=== PATIENT | female | born 1945 | race Caucasian/White ===

== ENCOUNTER 2018-02-09 19:01 | Inpatient (IN) | payer MEDICARE ==
[~2018-02-09] VITALS: Ht 152.4 cm; Wt 77.6 kg
[2018-02-09 19:05] VITALS: BP 134/77; PULSE 83; RESP 15; TEMP 99.1; O2SAT 94
--- NOTE | 2018-02-09 20:24 | PD ---
HPI Chief Complaint: Psychiatric Symptoms Time Seen by Provider: 20:23 Travel History International Travel<30 days: No Contact w/Intl Traveler<30days: No Traveled to known affect area: No History of Present Illness HPI 72-year-old female with history of bipolar disorder presents emergency department voluntarily for psychiatric evaluation. Patient states that she takes lithium daily. She has been taking this for 40 years. She tells me that intermittently she does hear voices over the years, however they become more frequent as of late. She states that they are telling her to throw rocks at babies. She tells me that she is concerned that she may hurt somebody so she came to the emergency department. Denies any illicit drug use. Denies any recent injuries, fever, or chills. She denies any other symptoms at this time. PFSH Past Medical History Bipolar Disorder: Yes Cardiovascular Problems: Yes ("palpitations") Hypertension: Yes Medical other: Yes ("psychosis...50 years ago") Thyroid Disease: Yes Tetanus Vaccination: < 5 Years Social History Tobacco Use: No Substance Use: No Allergies-Medications (Allergen,Severity, Reaction): Coded Allergies: No Known Allergies (Unverified , 02/09/18) Reported Meds & Prescriptions Reported Meds & Active Scripts Active Reported Atorvastatin (Atorvastatin Calcium) 40 Mg Tab 40 Mg PO HS Propranolol (Propranolol HCl) 20 Mg Tab 20 Mg PO Q12HR [place] ([place] Citrate) 8 Meq/5 Ml (5 Ml) Solution 450 Mg PO DAILY Clopidogrel (Clopidogrel Bisulfate) 75 Mg Tab 75 Mg PO DAILY Review of Systems Except as stated in HPI: all other systems reviewed are Neg Physical Exam Narrative GENERAL: Well-nourished elderly female patient, no acute distress. SKIN: Focused skin assessment warm/dry. HEAD: Atraumatic. Normocephalic. EYES: Pupils equal and round. No scleral icterus. No injection or drainage. ENT: No nasal bleeding or discharge. Mucous membranes pink and moist. NECK: Trachea midline. No JVD. CARDIOVASCULAR: Regular rate and rhythm. No murmur appreciated. RESPIRATORY: No accessory muscle use. Clear to auscultation. Breath sounds equal bilaterally. GASTROINTESTINAL: Abdomen soft, non-tender, nondistended. Hepatic and splenic margins not palpable. MUSCULOSKELETAL: No obvious deformities. No clubbing. No cyanosis. No edema. NEUROLOGICAL: Awake and alert. No obvious cranial nerve deficits. Motor grossly within normal limits. Normal speech. Data Data Last Documented VS Vital Signs Date Time Temp Pulse Resp B/P (MAP) Pulse Ox O2 Delivery O2 Flow Rate FiO2 02/10/18 01:23 70 20 142/78 (99) 97 Room Air 02/09/18 19:05 99.1 Orders Orders Complete Blood Count With Diff (02/09/18 20:23) Comprehensive Metabolic Panel (02/09/18 20:23) Thyroid Stimulating Hormone (02/09/18 20:23) Urinalysis - C+S If Indicated (02/09/18 20:23) Oximetry (02/09/18 20:23) Iv Access Insert/Monitor (02/09/18 20:23) Ecg Monitoring (02/09/18 20:23) Cath For Specimen (02/09/18 20:23) Psych Screen (02/09/18 20:23) Drug Screen, Random Urine (02/09/18 20:23) Alcohol (Ethanol) (02/09/18 20:23) [place] (Li) (02/09/18 20:47) Lorazepam (Ativan) (02/10/18 00:45) Labs Laboratory Tests Test 02/09/18 20:45 02/09/18 22:05 White Blood Count 7.8 TH/MM3 Red Blood Count 4.59 MIL/MM3 Hemoglobin 14.4 GM/DL Hematocrit 43.5 % Mean Corpuscular Volume 94.8 FL Mean Corpuscular Hemoglobin 31.5 PG Mean Corpuscular Hemoglobin Concent 33.2 % Red Cell Distribution Width 13.6 % Platelet Count 311 TH/MM3 Mean Platelet Volume 7.0 FL Neutrophils (%) (Auto) 68.3 % Lymphocytes (%) (Auto) 21.1 % Monocytes (%) (Auto) 8.7 % Eosinophils (%) (Auto) 1.1 % Basophils (%) (Auto) 0.8 % Neutrophils # (Auto) 5.3 TH/MM3 Lymphocytes # (Auto) 1.6 TH/MM3 Monocytes # (Auto) 0.7 TH/MM3 Eosinophils # (Auto) 0.1 TH/MM3 Basophils # (Auto) 0.1 TH/MM3 CBC Comment DIFF FINAL Differential Comment Blood Urea Nitrogen 15 MG/DL Creatinine 0.95 MG/DL Random Glucose 105 MG/DL Total Protein 7.6 GM/DL Albumin 4.0 GM/DL Calcium Level 9.6 MG/DL Alkaline Phosphatase 82 U/L Aspartate Amino Transf (AST/SGOT) 20 U/L Alanine Aminotransferase (ALT/SGPT) 26 U/L Total Bilirubin 0.8 MG/DL Sodium Level 141 MEQ/L Potassium Level 3.8 MEQ/L Chloride Level 109 MEQ/L Carbon Dioxide Level 24.6 MEQ/L Anion Gap 7 MEQ/L Estimat Glomerular Filtration Rate 58 ML/MIN Thyroid Stimulating Hormone 3rd Gen 1.430 uIU/ML [place] Level 0.7 MEQ/L Ethyl Alcohol Level LESS THAN 3 MG/DL Urine Color YELLOW Urine Turbidity CLEAR Urine pH 7.0 Urine Specific [place] 1.014 Urine Protein NEG mg/dL Urine Glucose (UA) NEG mg/dL Urine Ketones TRACE mg/dL Urine Occult Blood TRACE Urine Nitrite NEG Urine Bilirubin NEG Urine Urobilinogen LESS THAN 2.0 MG/DL Urine Leukocyte Esterase NEG Urine RBC 15 /hpf Urine WBC 2 /hpf Urine Squamous Epithelial Cells <1 /hpf Urine Hyaline Casts 2 /lpf Urine Mucus FEW /lpf Microscopic Urinalysis Comment CATH-CULT NOT IND Urine Opiates Screen NEG Urine Barbiturates Screen NEG Urine Amphetamines Screen NEG Urine Benzodiazepines Screen NEG Urine Cocaine Screen NEG Urine Cannabinoids Screen NEG MDM Medical Decision Making Medical Screen Exam Complete: Yes Emergency Medical Condition: Yes Medical Record Reviewed: Yes Differential Diagnosis Mood disorder versus personality disorder versus lithium toxicity versus subtherapeutic lithium Narrative Course 72-year-old female presents emergency department voluntarily for psychiatric evaluation. Patient has long-standing history of bipolar disorder. She does take lithium for this. Patient is concerned that she might hurt somebody else that the voices in her head are telling her to throw rocks the babies. Laboratory Tests Test 02/09/18 20:45 02/09/18 22:05 White Blood Count 7.8 TH/MM3 Red Blood Count 4.59 MIL/MM3 Hemoglobin 14.4 GM/DL Hematocrit 43.5 % Mean Corpuscular Volume 94.8 FL Mean Corpuscular Hemoglobin 31.5 PG Mean Corpuscular Hemoglobin Concent 33.2 % Red Cell Distribution Width 13.6 % Platelet Count 311 TH/MM3 Mean Platelet Volume 7.0 FL Neutrophils (%) (Auto) 68.3 % Lymphocytes (%) (Auto) 21.1 % Monocytes (%) (Auto) 8.7 % Eosinophils (%) (Auto) 1.1 % Basophils (%) (Auto) 0.8 % Neutrophils # (Auto) 5.3 TH/MM3 Lymphocytes # (Auto) 1.6 TH/MM3 Monocytes # (Auto) 0.7 TH/MM3 Eosinophils # (Auto) 0.1 TH/MM3 Basophils # (Auto) 0.1 TH/MM3 CBC Comment DIFF FINAL Differential Comment Blood Urea Nitrogen 15 MG/DL Creatinine 0.95 MG/DL Random Glucose 105 MG/DL Total Protein 7.6 GM/DL Albumin 4.0 GM/DL Calcium Level 9.6 MG/DL Alkaline Phosphatase 82 U/L Aspartate Amino Transf (AST/SGOT) 20 U/L Alanine Aminotransferase (ALT/SGPT) 26 U/L Total Bilirubin 0.8 MG/DL Sodium Level 141 MEQ/L Potassium Level 3.8 MEQ/L Chloride Level 109 MEQ/L Carbon Dioxide Level 24.6 MEQ/L Anion Gap 7 MEQ/L Estimat Glomerular Filtration Rate 58 ML/MIN Thyroid Stimulating Hormone 3rd Gen 1.430 uIU/ML [place] Level 0.7 MEQ/L Ethyl Alcohol Level LESS THAN 3 MG/DL Urine Color YELLOW Urine Turbidity CLEAR Urine pH 7.0 Urine Specific [place] 1.014 Urine Protein NEG mg/dL Urine Glucose (UA) NEG mg/dL Urine Ketones TRACE mg/dL Urine Occult Blood TRACE Urine Nitrite NEG Urine Bilirubin NEG Urine Urobilinogen LESS THAN 2.0 MG/DL Urine Leukocyte Esterase NEG Urine RBC 15 /hpf Urine WBC 2 /hpf Urine Squamous Epithelial Cells <1 /hpf Urine Hyaline Casts 2 /lpf Urine Mucus FEW /lpf Microscopic Urinalysis Comment CATH-CULT NOT IND Urine Opiates Screen NEG Urine Barbiturates Screen NEG Urine Amphetamines Screen NEG Urine Benzodiazepines Screen NEG Urine Cocaine Screen NEG Urine Cannabinoids Screen NEG Lab work is without acute concern. Patient is medically cleared to undergo psychiatric screening for further evaluation and disposition. Mental health screening discussed with the patient. Psychiatric screen ordered. Diagnosis Primary Impression: Bipolar disorder Qualified Codes: F31.9 - Bipolar disorder, unspecified Additional Impression: Auditory hallucination Condition: Stable Gissell Stewart ELADIO Feb 09, 2018 20:24
[2018-02-09] MEDS ORDERED: LITH8SOL2 PO (20:57)
[2018-02-09] MEDS ORDERED: PROP20TA3 PO (20:57)
[2018-02-09] MEDS ORDERED: ATOR40TA16 PO (20:57)
[2018-02-09] MEDS ORDERED: CLOP75TA PO (20:57)
[2018-02-09 20:58] VITALS: O2SAT 100
[2018-02-09 21:03] LABS: AUTOMATED NEUTROPHIL # 5.3 TH/MM3 (1.8-7.7); BASOPHIL # 0.1 TH/MM3 (0-0.2); BASOPHIL % 0.8 % (0.0-2.0); EOSINOPHIL # 0.1 TH/MM3 (0-0.4); EOSINOPHIL % 1.1 % (0.0-4.0); HEMATOCRIT 43.5 % (35.0-46.0); HEMOGLOBIN 14.4 GM/DL (11.6-15.3); LYMPH % 21.1 % (9.0-44.0); LYMPHOCYTE # 1.6 TH/MM3 (1.0-4.8); MEAN CELL VOLUME 94.8 FL (80.0-100.0); MEAN CORPUSCULAR HEMOGLOBIN 31.5 PG (27.0-34.0); MEAN CORPUSCULAR HGB CONC 33.2 % (32.0-36.0); MONO % 8.7 % (0.0-8.0); MONOCYTE # 0.7 TH/MM3 (0-0.9); NEUT % 68.3 % (16.0-70.0); PLATELET COUNT 311 TH/MM3 (150-450); RED BLOOD COUNT 4.59 MIL/MM3 (4.00-5.30); RED CELL DISTRIBUTION WIDTH 13.6 % (11.6-17.2); WHITE BLOOD COUNT 7.8 TH/MM3 (4.0-11.0)
[2018-02-09 21:18] LABS: AST (GOT) 20 U/L (15-37); BICARBONATE 24.6 MEQ/L (21.0-32.0); BLOOD UREA NITROGEN 15 MG/DL (7-18); CALCIUM 9.6 MG/DL (8.5-10.1); CHLORIDE 109 MEQ/L (98-107); CREATININE 0.95 MG/DL (0.50-1.00); GLOMERULAR FILTRATION RATE 58 ML/MIN (>89); GLUCOSE,RANDOM 105 MG/DL (74-106); SODIUM (NA) 141 MEQ/L (136-145)
[2018-02-09 21:20] LABS: ALT (GPT) 26 U/L (10-53)
[2018-02-09 21:29] LABS: ALKALINE PHOSPHATASE 82 U/L (45-117); TOTAL BILIRUBIN ADULT 0.8 MG/DL (0.2-1.0); TOTAL PROTEIN 7.6 GM/DL (6.4-8.2)
[2018-02-09 22:24] LABS: BILIRUBIN, URINE NEG (NEG); BLOOD, URINE TRACE (NEG); GLUCOSE,URINE NEG (NEG); HYALINE CAST, URINE 2 /lpf (RARE); KETONE, URINE TRACE mg/dL (NEG); MUCUS URINE FEW /lpf (OCC); NITRITE,URINE NEG (NEG); SQUAMOUS EPITHELIAL CELL URINE <1 /hpf (0-5); URINE COLOR YELLOW (YELLW/STRAW); URINE LEUKOCYTE ESTERASE NEG (NEG)
[2018-02-10] MEDS ORDERED: LORazepam 1 MG TAB PO ONE ×2 (00:45→07:15)
[2018-02-10 01:23] VITALS: BP 142/78; PULSE 70; RESP 20; O2SAT 97
[2018-02-10 07:15] VITALS: BP 154/65; PULSE 72; RESP 19; TEMP 98.8; O2SAT 98
[2018-02-10] MEDS ORDERED: LITHIUM ORAL SOLUTION 300 MG/5 ML CUP PO ONE (07:15)
[2018-02-10] MEDS ORDERED: ALUMINUM/MAGNESIUM/SIMETH 30 ML CUP PO PRN (15:30)
[2018-02-10] MEDS ORDERED: MAGNESIUM HYDROXIDE SUSP 30 ML CUP PO PRN (15:30)
[2018-02-10] MEDS ORDERED: NICOTINE 21 MG/24 HR PATCH T-DERMAL PRN (15:30)
[2018-02-10] MEDS ORDERED: diphenhydrAMINE HCL 50 MG CAP PO PRN (15:30)
[2018-02-10] MEDS ORDERED: diphenhydrAMINE HCL 25 MG CAP PO PRN (15:45)
[2018-02-10 18:15] VITALS: BP 156/75; PULSE 87; RESP 19; TEMP 98.7; O2SAT 95
[2018-02-10 21:20] VITALS: BP 146/69; PULSE 101; RESP 20; TEMP 97.8; O2SAT 98
[2018-02-10] MEDS: PROPRANOLOL HCL 20 MG TAB PO SCH (21:42)
[2018-02-10] MEDS: ATORVASTATIN 40 MG TAB PO SCH (21:42)
--- NOTE | 2018-02-10 23:53 | EKG ---
Date Performed: 02/10/2018 Time Performed: 16:41:33 PTAGE: 72 years EKG: Sinus rhythm NONSPECIFIC ST & T-WAVE ABNORMALITY ABNORMAL ECG PREVIOUS TRACING : 04/30/2001 23.45 Since the previous tracing, no significant change noted DOCTOR: Jermain Munoz Interpretating Date/Time 02/10/2018 23:52:27
[2018-02-11 06:16] VITALS: BP 138/82; PULSE 62; RESP 17; TEMP 97.4; O2SAT 97
[2018-02-11] MEDS: REMOVE OLD NICODERM (NICOTINE) PATCH T-DERMAL SCH (07:53)
[2018-02-11 08:59] LABS: BLOOD UREA NITROGEN 22 MG/DL (7-18); CALCIUM 9.6 MG/DL (8.5-10.1); CHLORIDE 110 MEQ/L (98-107); CREATININE 0.83 MG/DL (0.50-1.00); GLOMERULAR FILTRATION RATE 67 ML/MIN (>89); GLUCOSE,RANDOM 95 MG/DL (74-106); SODIUM (NA) 142 MEQ/L (136-145)
[2018-02-11 09:00] LABS: CHOLESTEROL 155 MG/DL (120-200); TRIGLYCERIDES 61 MG/DL (42-150)
[2018-02-11] MEDS: PROPRANOLOL HCL 20 MG TAB PO SCH ×2 (09:00→20:27)
[2018-02-11] MEDS: CLOPIDOGREL 75 MG TAB PO SCH (09:00)
[2018-02-11 09:04] LABS: CHOLESTEROL/ HDL RATIO 1.78 RATIO; HDL CHOLESTEROL 86.8 MG/DL (40.0-60.0); LDL CHOLESTEROL 56 MG/DL (0-99)
--- NOTE | 2018-02-11 14:37 | HHI.HP ---
Provisional Diagnosis Admission Date Feb 10, 2018 at 15:27 [place] I. 1. Unspecified psychosis Rule out bipolar disorder with psychotic features 2. History of bipolar illness [place] II. Deferred Certification of Person's Competence To Provide Express and Informed Consent I have personally examined Cristina Perez , a person being served at [facility] on, Feb 11, 2018 14:37. Express and informed consent means consent voluntarily given in writing, by a competent person, after sufficient explanation and disclosure of the subject matter involved to enable the person to make a knowing and willful decision without any element of force, fraud, deceit, duress, or other form of constraint or coercion. This person is 18 years of age or older, is not now known to be incompetent to consent to treatment with a guardian advocate, and does not have a health care surrogate or proxy currently making medical treatment decisions. I have found this person to be one of the following: [x] Competent to provide express and informed consent, as defined above, for voluntary admission to this facility and is competent to provide express and informed consent for treatment. He/she has the consistent capacity to make well reasoned, willful, and knowing decisions concerning his or her medical or mental health treatment. The person fully and consistently understands the purpose of the admission for examination/placement and is fully capable of personally exercising all rights assured [place] Incompetent to provide express and informed consent to voluntary admission, and this is incompetent to provide express and informed consent to treatment. The person must be transferred to involuntary status and a petition for a guardian advocate filed with the Circuit Court. [] Refusing to provide express and informed consent to voluntary admission but is competent to provide express and informed consent for treatment. The person must be discharged or transferred to involuntary status. Form shall be completed within 24 hours of a person's arrival at the receiving facility and filed in the clinical record of each person: 1. Admitted on a voluntary basis 2. Permitted to provide express and informed consent to his/her own treatment 3. Allowed to transfer from involuntary to voluntary status 4. Prior to permitting a person to consent to his or her own treatment after having been previously found incompetent to consent to treatment. History of Present Illness Capacity: Has Capacity Psych Chief Complaint: Hallucinations HPI Ms. Perez is a 72-year-old female with a reported history of bipolar disorder who presented to the emergency department voluntarily complaining of auditory hallucinations. Reviewing the electronic medical record, I note this is patient 's first visit to [place]. Patient seen and examined. Chart reviewed. Case discussed with nursing staff who reports patient has been quite paranoid and reportedly articulated a belief that nurse was trying to kill her. She is also paranoid regarding medications per nursing staff. On my examination today, the patient reports that she has experienced "noises in my head over the years. Voices in my head. Birds tinkling." She reports that she also occasionally hears a persons voice telling her, for example, to throw a rock at someone else. She denies that the voices are worse/different than usual. She also reports on occasion that she feels like people are watching her and following her. She reports that both the paranoia and hallucinations have occurred before, and these have always responded to nothing more than lithium therapy. I can elicit no ideas of reference, no thought insertion or withdrawal or other delusional material. She denies any other hallucinatory material. Mood is reportedly stable and I can elicit no depressive or hypomanic/manic symptoms. No reported sleep or appetite disturbance. She denies any suicidal or homicidal ideation, intent or plan. The remainder of the psychiatric ROS is negative. The patient has no acute physical complaints. Past psychiatric history: The patient reports that she has a history of bipolar disorder. She follows with a female mental health provider whose name she cannot recall. She reports that she is chronically on lithium, she thinks a dose of 425 mg twice daily, although she does note that she stops it "on and off." She reports that she was hospitalized at [facility] in the past although she cannot recall exactly when. She denies a history of suicide attempts. Denies a history of violent behavior. Family history: Patient reports that her brother had paranoid schizophrenia. No reported family history of suicide. Chemical dependency history: The patient reports that she occasionally drinks wine. Denies any other substance use. Social history: Patient reports that she was in 2013. She has a son. 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 She denies any or legal history. Denies any access to guns or firearms. Denies any history of trauma. She is a Anab[employer]ism. Review of Systems Except as stated in HPI: all other systems reviewed are Neg Past Family Social History Coded Allergies: No Known Allergies (Unverified , 02/09/18) Past Medical History Includes a history of hypertension, hyperlipidemia, overactive bladder and knee surgery in the past. Reported Medications Atorvastatin (Atorvastatin) 40 Mg Tab, 40 MG PO HS for Cholesterol Management, # 30 TAB 0 Refills 02/09/18 Propranolol (Propranolol) 20 Mg Tab, 20 MG PO Q12HR, #60 TAB 0 Refills 02/09/18 [place] Citrate ([place]) 8 Meq/5 Ml (5 Ml) Solution, 450 MG PO DAILY 02/09/18 Clopidogrel (Clopidogrel) 75 Mg Tab, 75 MG PO DAILY for Blood Clot Prevention, # 30 TAB 0 Refills 02/09/18 Current Medications Medications (Trade) Dose Ordered Sig/Padmini Route Start Time Stop Time Status Last Admin (Lipitor) 40 mg HS PO 02/10/18 21:00 02/10/18 21:42 (Plavix) 75 mg DAILY PO 02/11/18 09:00 02/11/18 09:00 (Inderal) 20 mg Q12HR PO 02/10/18 21:00 02/11/18 09:00 (Tylenol) 650 mg Q4H PRN PO 02/10/18 15:30 (Milk Of Magnesia Liq) 30 ml DAILY PRN PO 02/10/18 15:30 (Mag-Al Plus Susp Liq) 30 ml Q6H PRN PO 02/10/18 15:30 (Habitrol 21 Mg Patch.24 Hr) 1 patch DAILY PRN T-DERMAL 02/10/18 15:30 (Benadryl) 25 mg HS PRN PO 02/10/18 15:45 Miscellaneous Information 1 DAILY T-DERMAL 02/11/18 09:00 Patient's Strengths (min. 2) In a monitored setting. Verbally fluent. Physical Exam Physical examination completed by ED provider. On my examination today, the patient appears to be in no acute physical distress. No motor abnormalities noted. Labs and vitals reviewed: Vital Signs Vital Signs Date Time Temp Pulse Resp B/P (MAP) Pulse Ox O2 Delivery O2 Flow Rate FiO2 02/11/18 06:16 97.4 62 17 138/82 (100) 97 02/10/18 18:15 Room Air Lab Results Laboratory Tests Test 02/09/18 20:45 02/09/18 22:05 02/11/18 07:35 White Blood Count 7.8 TH/MM3 Red Blood Count 4.59 MIL/MM3 Hemoglobin 14.4 GM/DL Hematocrit 43.5 % Mean Corpuscular Volume 94.8 FL Mean Corpuscular Hemoglobin 31.5 PG Mean Corpuscular Hemoglobin Concent 33.2 % Red Cell Distribution Width 13.6 % Platelet Count 311 TH/MM3 Mean Platelet Volume 7.0 FL Neutrophils (%) (Auto) 68.3 % Lymphocytes (%) (Auto) 21.1 % Monocytes (%) (Auto) 8.7 % Eosinophils (%) (Auto) 1.1 % Basophils (%) (Auto) 0.8 % Neutrophils # (Auto) 5.3 TH/MM3 Lymphocytes # (Auto) 1.6 TH/MM3 Monocytes # (Auto) 0.7 TH/MM3 Eosinophils # (Auto) 0.1 TH/MM3 Basophils # (Auto) 0.1 TH/MM3 CBC Comment DIFF FINAL Differential Comment Blood Urea Nitrogen 15 MG/DL 22 MG/DL Creatinine 0.95 MG/DL 0.83 MG/DL Random Glucose 105 MG/DL 95 MG/DL Total Protein 7.6 GM/DL Albumin 4.0 GM/DL Calcium Level 9.6 MG/DL 9.6 MG/DL Alkaline Phosphatase 82 U/L Aspartate Amino Transf (AST/SGOT) 20 U/L Alanine Aminotransferase (ALT/SGPT) 26 U/L Total Bilirubin 0.8 MG/DL Sodium Level 141 MEQ/L 142 MEQ/L Potassium Level 3.8 MEQ/L 4.0 MEQ/L Chloride Level 109 MEQ/L 110 MEQ/L Carbon Dioxide Level 24.6 MEQ/L 23.0 MEQ/L Thyroid Stimulating Hormone 3rd Gen 1.430 uIU/ML [place] Level 0.7 MEQ/L Ethyl Alcohol Level LESS THAN 3 MG/DL Urine Color YELLOW Urine Turbidity CLEAR Urine pH 7.0 Urine Specific [place] 1.014 Urine Protein NEG mg/dL Urine Glucose (UA) NEG mg/dL Urine Ketones TRACE mg/dL Urine Occult Blood TRACE Urine Nitrite NEG Urine Bilirubin NEG Urine Urobilinogen LESS THAN 2.0 MG/DL Urine Leukocyte Esterase NEG Urine RBC 15 /hpf Urine WBC 2 /hpf Urine Squamous Epithelial Cells <1 /hpf Urine Hyaline Casts 2 /lpf Urine Mucus FEW /lpf Microscopic Urinalysis Comment CATH-CULT NOT IND Urine Opiates Screen NEG Urine Barbiturates Screen NEG Urine Amphetamines Screen NEG Urine Benzodiazepines Screen NEG Urine Cocaine Screen NEG Urine Cannabinoids Screen NEG Anion Gap 9 MEQ/L Estimat Glomerular Filtration Rate 67 ML/MIN Triglycerides Level 61 MG/DL Cholesterol Level 155 MG/DL LDL Cholesterol 56 MG/DL HDL Cholesterol 86.8 MG/DL Cholesterol/HDL Ratio 1.78 RATIO Decreased GFR noted, improving. [place] level 0.7. Mental Status Examination Appearance: Appropriate Consciousness: Alert Orientation: x4 Motor Activity: Other (Ambulates with walker) Speech: Unremarkable Language: Adequate Fund of Knowledge: Adequate Attention and Concentration: Adequate Memory: Unremarkable Mood: Appropriate Affect: Appropriate Thought Process & Associations: Intact Thought Content: Hallucinations Hallucination Type: Auditory (Occasionally command as noted above) Delusion Type: Paranoid Suicidal Ideation: No Suicidal Plan: No Suicidal Intention: No Homicidal Ideation: No Homicidal Plan: No Homicidal Intention: No Mental Status Exam Remarks Insight and judgment are unclear Assessment & Plan Problem List: (1) Unspecified psychosis ICD Codes: F29 - Unspecified psychosis not due to a substance or known physiological condition (2) History of bipolar disorder ICD Codes: Z86.59 - Personal history of other mental and behavioral disorders Assessment & Plan 72-year-old female with psychiatric history as detailed above who presents on a voluntary basis complaining of hallucinations. On my examination today, the patient reports that she is experiencing auditory hallucinations, including some command auditory hallucinations. However, the patient seems to say that these hallucinations are not worse or different than baseline. She is also experiencing some subjective paranoia, and nursing staff has noted paranoia in their interactions. She reports occasional non-adherence with her lithium, although her level is fairly good, and so I am not sure how much this is a factor in the present instance. Patient is presently opposed to making any medication change besides continuing her lithium, although I have suggested that she allow us to add an antipsychotic medication for management of her presenting symptoms. I will plan to observe the patient on the inpatient unit for safety and in hopes of convincing her to allow us to add an antipsychotic. Admit inpatient. Voluntary status. Continue lithium 450 mg twice daily. Plan to check a level after appropriate interval. Patient declines any other psychotropic medications including p.r.n.s. I will continue patient's general medical medications. PT/OT eval. Vitals every shift. Counselor to see. Collateral information. Disposition planning. Estimated length of stay: 3-5 days. Discharge Planning Pending outcome of observation Request HC Surrog/Guard Advoc?: No (Not at this time) Luis Fernando Diaz MD Feb 11, 2018 14:37
[2018-02-11] MEDS: LITHIUM CARBONATE 450 MG CONTROLLED RELEASE TAB PO SCH (16:41)
[2018-02-11 17:07] LABS: HEMOGLOBIN A1C 5.2 % (4.3-6.0)
[2018-02-11 17:20] VITALS: BP 126/66; PULSE 65; RESP 18; TEMP 98.8; O2SAT 97
[2018-02-11] MEDS: ATORVASTATIN 40 MG TAB PO SCH (20:28)
--- NOTE | 2018-02-11 23:57 | EKG ---
Date Performed: 02/11/2018 Time Performed: 09:48:58 PTAGE: 72 years EKG: Sinus rhythm S1-S2-S3 PATTERN, CONSISTENT WITH PULMONARY DISEASE, RVH, OR NORMAL VARIANT MODERATE T-WAVE ABNORMAL ITY, CONSIDER ANTEROLATERAL ISCHEMIA ABNORMAL ECG PREVIOUS TRACING : 02/10/2018 16.41 Compared to previous tracing, ST/T wave changes anteriorly are more prominent DOCTOR: Jermain Munoz Interpretating Date/Time 02/11/2018 23:56:37
[2018-02-12 05:54] VITALS: BP 127/62; PULSE 59; RESP 16; TEMP 98
[2018-02-12] MEDS: LITHIUM CARBONATE 450 MG CONTROLLED RELEASE TAB PO SCH ×2 (08:24→18:00)
[2018-02-12] MEDS: PROPRANOLOL HCL 20 MG TAB PO SCH ×2 (08:25→20:30)
[2018-02-12] MEDS: CLOPIDOGREL 75 MG TAB PO SCH (08:25)
[2018-02-12] MEDS: ACETAMINOPHEN 325 MG TAB PO PRN (08:30)
[2018-02-12] MEDS: REMOVE OLD NICODERM (NICOTINE) PATCH T-DERMAL SCH (08:30)
--- NOTE | 2018-02-12 09:21 | PD.TTN ---
Patient Problems 1. Discharge planning 2. Medication compliance 3. Knowledge deficit 4. Lack of coping skills Progress Toward Goals Provider Present: Dr. Joshua Diaz Provider Input: 02/12/18 - Patient is on the same dose of [place] that she took at home. Possible discharge Sunday. Psychiatric Counselors Present: GABE Peter Psych Therapist Input: 02/12/18 - Counselor will obtain collateral information. Patient reported yesterday during her biopsychosocial assessment that she "is perfectly fine." Group Spec/RT/OT/BRYANT Present: Kaushal Trujillo OT Group Spec/RT/OT/BRYANT Input: 02/12/18 - Patient has not attended groups. Discharge Plan 02/12/18 - Patient will be discharged home when stable and will follow-up with her psychiatrist, . Documentation Scribe: GABE Peter Date Resolved: Feb 12, 2018 Naila Larios Feb 12, 2018 09:21
--- NOTE | 2018-02-12 12:43 | HHI.PYPN ---
Subjective Chief Complaint: Hallucinations Remarks Patient seen and examined with nurse and counselor. Chart reviewed. Case discussed with nursing staff. Patient noted to be oppositional and somewhat paranoid by nursing staff. Case discussed in treatment team. On my examination today, the patient initially denies all of her presenting psychiatric symptoms and requests discharge today. When I ask what has changed to cause such an abrupt improvement, the patient blurts out, "I'm lying about everything!" When I ask why, she replies "so I can go home." She reports that she continues to experience all of the symptoms she reported at admission, including AH. She remains paranoid. She refuses to consider antipsychotic and insists on discharge today. No side effects from medications. No physical complaints. Given that patient will require healthcare surrogate, see below, I did endeavor to reach out to her son at the number listed in the EMR and left a generic voicemail requesting a call back. Review of Systems ROS Limitations: Psychotic, Poor Historian Except as stated in HPI: all other systems reviewed are Neg Mental Status Examination Appearance: Appropriate Consciousness: Alert Orientation: x4 Motor Activity: Other (No motor abnormalities noted) Speech: Unremarkable Language: Adequate Fund of Knowledge: Adequate Attention and Concentration: Adequate Memory: Unremarkable Mood: Appropriate Affect: Appropriate Thought Process & Associations: Intact Thought Content: Hallucinations Hallucination Type: Auditory (Including command auditory hallucinations) Delusion Type: Paranoid Suicidal Ideation: No Suicidal Plan: No Suicidal Intention: No Homicidal Ideation: No Homicidal Plan: No Homicidal Intention: No Insight: Poor Judgment: Poor Results Labs Labs reviewed Vitals/IOs Vital Signs Date Time Temp Pulse Resp B/P (MAP) Pulse Ox O2 Delivery O2 Flow Rate FiO2 02/12/18 05:54 98.0 59 16 127/62 (83) 02/11/18 17:20 97 02/10/18 18:15 Room Air Assessment & Plan Problem List: (1) Unspecified psychosis ICD Codes: F29 - Unspecified psychosis not due to a substance or known physiological condition (2) History of bipolar disorder ICD Codes: Z86.59 - Personal history of other mental and behavioral disorders Assessment & Plan Patient is insisting on discharge and refusing to sign in voluntarily. She continues to exhibit psychiatric symptoms including command auditory hallucinations that place her at elevated risk for harm. I cannot support her discharge today for this reason. I will initiate a petition for involuntary psychiatric hospitalization and consult for second opinion. I am likewise concerned that she is unable to appreciate the extent of her illness and is unable to negotiate treatment in a reasonable fashion secondary to her psychiatric symptoms. I will request healthcare surrogate and guardian advocate. I do think that the patient would benefit from an antipsychotic, but this will need to await consent by HCS. Continue current treatment as ordered in the meantime. Justification for Cont. Inpt. Concern for impairment in safety. Impairment in reality construction. High risk for decompensation in less restrictive environment. Discharge Planning Pending psychiatric stabilization. Request HC Surrog/Guard Advoc?: Yes Luis Fernando Diaz MD Feb 12, 2018 12:43
--- NOTE | 2018-02-12 14:05 | PD.PSY.CON ---
Provisional Diagnosis Admission Date Feb 10, 2018 at 15:27 [place] I. 1. Unspecified psychosis Rule out bipolar disorder with psychotic features 2. History of bipolar illness [place] II. Deferred History of Present Illness Service Psychiatry Consult Requested By Psychiatry Reason for Consult Second opinion Primary Care Physician Unknown HPI Ms. Perez is a 72-year-old female with a reported history of bipolar disorder who presented to the emergency department voluntarily complaining of auditory hallucinations. Reviewing the electronic medical record, I note this is patient 's first visit to [facility]. Patient seen and examined. Chart reviewed. Case discussed with nursing staff who reports patient has been quite paranoid and reportedly articulated a belief that nurse was trying to kill her. She is also paranoid regarding medications per nursing staff. On my examination today, the patient reports that she has experienced "noises in my head over the years. Voices in my head. Birds tinkling." She reports that she also occasionally hears a persons voice telling her, for example, to throw a rock at someone else. She denies that the voices are worse/different than usual. She also reports on occasion that she feels like people are watching her and following her. She reports that both the paranoia and hallucinations have occurred before, and these have always responded to nothing more than lithium therapy. I can elicit no ideas of reference, no thought insertion or withdrawal or other delusional material. She d the patient is a 72-year-old enies any other hallucinatory material. Mood is reportedly stable and I can elicit no depressive or hypomanic/manic symptoms. No reported sleep or appetite disturbance. She denies any suicidal or homicidal ideation, intent or plan. The remainder of the psychiatric ROS is negative. The patient has no acute physical complaints. The patient is a 72-year-old woman, who is a , has a son, with psychiatric history of bipolar disorder, psychiatric hospitalizations, she has been on lithium for a long time, who was brought to the hospital with a complaint of visual hallucinations. Patient was consulted to me for second opinion. She reports doing better. She has been reportedly paranoid, but at the moment of my evaluation I cannot proceed this paranoia. Denies depression at the moment, denies suicidal and was ideation, denies visual and auditory hallucinations. Past Family Social History Coded Allergies: No Known Allergies (Unverified , 02/09/18) Reported Medications Atorvastatin (Atorvastatin) 40 Mg Tab, 40 MG PO HS for Cholesterol Management, # 30 TAB 0 Refills 02/09/18 Propranolol (Propranolol) 20 Mg Tab, 20 MG PO Q12HR, #60 TAB 0 Refills 02/09/18 [place] Citrate ([place]) 8 Meq/5 Ml (5 Ml) Solution, 450 MG PO DAILY 02/09/18 Clopidogrel (Clopidogrel) 75 Mg Tab, 75 MG PO DAILY for Blood Clot Prevention, # 30 TAB 0 Refills 02/09/18 Current Medications Medications (Trade) Dose Ordered Sig/Padmini Route Start Time Stop Time Status Last Admin (Lipitor) 40 mg HS PO 02/10/18 21:00 02/11/18 20:28 (Plavix) 75 mg DAILY PO 02/11/18 09:00 02/12/18 08:25 (Inderal) 20 mg Q12HR PO 02/10/18 21:00 02/12/18 08:25 (Tylenol) 650 mg Q4H PRN PO 02/10/18 15:30 02/12/18 08:30 (Milk Of Magnesia Liq) 30 ml DAILY PRN PO 02/10/18 15:30 (Mag-Al Plus Susp Liq) 30 ml Q6H PRN PO 02/10/18 15:30 (Habitrol 21 Mg Patch.24 Hr) 1 patch DAILY PRN T-DERMAL 02/10/18 15:30 (Benadryl) 25 mg HS PRN PO 02/10/18 15:45 Miscellaneous Information 1 DAILY T-DERMAL 02/11/18 09:00 (Eskalith Sr) 450 mg BIDPC PO 02/11/18 18:00 02/12/18 08:24 Patient's Strengths (min. 2) In a monitored setting. Verbally fluent. Physical Exam Vital Signs Vital Signs Date Time Temp Pulse Resp B/P (MAP) Pulse Ox O2 Delivery O2 Flow Rate FiO2 02/12/18 05:54 98.0 59 16 127/62 (83) 02/11/18 17:20 97 02/10/18 18:15 Room Air Mental Status Examination Appearance: Appropriate Consciousness: Alert Orientation: x4 Motor Activity: Other (Ambulates with walker) Speech: Unremarkable Language: Adequate Fund of Knowledge: Adequate Attention and Concentration: Adequate Memory: Unremarkable Mood: Appropriate Affect: Appropriate Thought Process & Associations: Intact Thought Content: Hallucinations Hallucination Type: Auditory (Occasionally command as noted above) Delusion Type: Paranoid Suicidal Ideation: No Suicidal Plan: No Suicidal Intention: No Homicidal Ideation: No Homicidal Plan: No Homicidal Intention: No Assessment & Plan Problem List: (1) Unspecified psychosis ICD Codes: F29 - Unspecified psychosis not due to a substance or known physiological condition (2) History of bipolar disorder ICD Codes: Z86.59 - Personal history of other mental and behavioral disorders Assessment & Plan: I have seen and examined this patient, review documentation , I agree and concur with assessment and plan Assessment & Plan Estimated LOS: days Request HC Surrog/Guard Advoc?: No (Not at this time) Darren Li MD Feb 12, 2018 14:05
[2018-02-12 16:13] VITALS: BP 122/68; PULSE 61; RESP 18; TEMP 97.8; O2SAT 99
[2018-02-12 20:30] VITALS: BP 153/88; PULSE 76; RESP 20; O2SAT 94
[2018-02-12] MEDS: ATORVASTATIN 40 MG TAB PO SCH (20:30)
[2018-02-12 21:30] VITALS: BP 153/88; PULSE 76; RESP 20; O2SAT 94
[2018-02-13 05:54] VITALS: BP 157/72; PULSE 67; RESP 16; TEMP 98.5; O2SAT 94
[2018-02-13] MEDS: LITHIUM CARBONATE 450 MG CONTROLLED RELEASE TAB PO SCH ×2 (08:54→17:28)
[2018-02-13] MEDS: CLOPIDOGREL 75 MG TAB PO SCH (08:54)
[2018-02-13] MEDS: PROPRANOLOL HCL 20 MG TAB PO SCH ×2 (08:54→21:00)
[2018-02-13] MEDS: REMOVE OLD NICODERM (NICOTINE) PATCH T-DERMAL SCH (08:55)
--- NOTE | 2018-02-13 10:17 | HHI.PYPN ---
Subjective Chief Complaint: Hallucinations Remarks Patient seen and examined with nurse. Chart reviewed. Case discussed with nursing staff who reports patient remains somewhat irritable but has been medication compliant. On my examination today, the patient says "I do not sleep." She reports that her sleep is disturbed by racing thoughts. She reports that she continues to experience auditory hallucinations she denies any suicidal or homicidal ideation. She denies side effects from medications. No physical complaints. Remains quite discharged focused. Spoke with patient's son, Jona Perez or alternate . He notes that the patient has had mental illness most of son's life ( i.e. ~50 years). She has previously been diagnosed with schizophrenia and BPAD. Son recalls that the patient would have occasional mood episodes associated with psychosis, and her behavior during these times would become "intractible." Son notes that the psychotic episodes seemed to become less frequent as patient aged, but he noted about 1 month ago that she was growing more psychotic in their conversations on the phone. Son reports that he prompted mother to seek psychiatric help and come to the ED. He notes that historically patient's psychosis improved with Thorazine. Son is willing to act as HCS. We have extensive discussion regarding pharmacotherapy for patient' s symptoms and settle on addition of Zyprexa to patient's lithium after discussion of R/B/A. We discuss legal status, plan of care and have preliminary discussion regarding discharge planning. I spent ~21 min in telephone consultation with son. Review of Systems ROS Limitations: Psychotic, Poor Historian Except as stated in HPI: all other systems reviewed are Neg Mental Status Examination Appearance: Appropriate Consciousness: Alert Orientation: x4 Motor Activity: Other (No abnormal motor movements noted) Speech: Unremarkable Language: Adequate Fund of Knowledge: Adequate Attention and Concentration: Adequate Memory: Unremarkable Mood: Irritable Affect: Irritable Thought Process & Associations: Intact Thought Content: Hallucinations, Delusional Hallucination Type: Auditory Delusion Type: Paranoid Suicidal Ideation: No Suicidal Plan: No Suicidal Intention: No Homicidal Ideation: No Homicidal Plan: No Homicidal Intention: No Insight: Poor Judgment: Poor Results Labs Labs reviewed. Vitals/IOs Vital Signs Date Time Temp Pulse Resp B/P (MAP) Pulse Ox O2 Delivery O2 Flow Rate FiO2 02/13/18 05:54 98.5 67 16 157/72 (100) 94 02/10/18 18:15 Room Air Assessment & Plan Problem List: (1) Unspecified psychosis ICD Codes: F29 - Unspecified psychosis not due to a substance or known physiological condition (2) History of bipolar disorder ICD Codes: Z86.59 - Personal history of other mental and behavioral disorders Assessment & Plan Add Zyprexa 5 mg qHS PO with IM backup for psychosis. QTc wnl. Continue lithium as ordered and plan to check a lithium level and BMP Sunday morning. Continue to monitor on the inpatient unit. Continue other medications and care as ordered. I have discussed patient's change in legal status with the patient. Justification for Cont. Inpt. Medication changes. Impairment in reality construction. Risk for decompensation in less restrictive environment. Discharge Planning Pending psychiatric stabilization. Request HC Surrog/Guard Advoc?: Yes Luis Fernando Diaz MD Feb 13, 2018 10:17
[2018-02-13] MEDS ORDERED: OLANZapine IM 10 MG VIAL IM PRN (10:30)
[2018-02-13 18:23] VITALS: BP 127/74; PULSE 66; RESP 16; TEMP 98.7; O2SAT 95
[2018-02-13] MEDS: ATORVASTATIN 40 MG TAB PO SCH (21:00)
[2018-02-13] MEDS ORDERED: OLANZapine ODT 5 MG TAB PO SCH (21:00)
[2018-02-14 05:24] VITALS: BP 146/67; PULSE 73; RESP 16; TEMP 97.7; O2SAT 97
[2018-02-14] MEDS: PROPRANOLOL HCL 20 MG TAB PO SCH ×2 (09:00→20:28)
[2018-02-14] MEDS: CLOPIDOGREL 75 MG TAB PO SCH (09:00)
[2018-02-14] MEDS: REMOVE OLD NICODERM (NICOTINE) PATCH T-DERMAL SCH (09:00)
[2018-02-14] MEDS: LITHIUM CARBONATE 450 MG CONTROLLED RELEASE TAB PO SCH ×2 (09:00→18:00)
--- NOTE | 2018-02-14 12:53 | HHI.PYPN ---
Subjective Chief Complaint: Hallucinations Remarks Patient seen and examined. Chart reviewed. Patient refused PO Zyprexa and was medicated with IM Zyprexa overnight as per orders. Case discussed with nursing staff. Per nursing staff, patient was making bird noises of "Cuckoo! Cuckoo!" earlier today. I observe the patient from the nursing station shrieking at the nursing station from the hallway, red in the face. When I go to see what is wrong, she yells "go away from me! You're a devil!" Affect is broadly dysphoric. She is quite paranoid. She then barricades herself in her room and admit neither myself nor the nurse nor her roommate. Patient was extracted from her room by staff and taken to the high acuity unit until a private bed could be secured on the geropsychiatric unit. No side effects from medications. No physical complaints. Review of Systems ROS Limitations: Psychotic, Poor Historian Except as stated in HPI: all other systems reviewed are Neg Mental Status Examination Appearance: Appropriate Consciousness: Alert Orientation: x4 Motor Activity: Other (No motoric abnormalities noted) Speech: Other (Loud) Language: Other (Angry) Fund of Knowledge: Adequate Attention and Concentration: Adequate Memory: Unremarkable Mood: Angry, Oppositional, Irritable Affect: Irritable Thought Process & Associations: Intact Thought Content: Hallucinations, Delusional Hallucination Type: Other (Appears internally stimulated) Delusion Type: Paranoid Suicidal Ideation: No (No SI voiced) Homicidal Ideation: No (No HI voiced) Insight: Poor Judgment: Poor Results Labs Labs reviewed Vitals/IOs Vital Signs Date Time Temp Pulse Resp B/P (MAP) Pulse Ox O2 Delivery O2 Flow Rate FiO2 02/14/18 05:24 97.7 73 16 146/67 (93) 97 02/10/18 18:15 Room Air Assessment & Plan Problem List: (1) Unspecified psychosis ICD Codes: F29 - Unspecified psychosis not due to a substance or known physiological condition (2) History of bipolar disorder ICD Codes: Z86.59 - Personal history of other mental and behavioral disorders Assessment & Plan I suspect patient is now making no pretense of maintaining normality, and we are seeing the true extent of her psychosis. I will titrate patient's Zyprexa to 7.5mg qHS PO/IM. Continue lithium as ordered and plan to check a level in the morning. Continue to monitor on the inpatient unit. Continue other medications and care as ordered. Justification for Cont. Inpt. Medication changes. Impairment in reality construction. High risk for decompensation in less restrictive environment. Discharge Planning Pending psychiatric stabilization. Request HC Surrog/Guard Advoc?: Yes Luis Fernando Diaz MD Feb 14, 2018 12:53
[2018-02-14] MEDS ORDERED: OLANZapine IM 10 MG VIAL IM PRN (16:00)
[2018-02-14] MEDS ORDERED: PILL SPLITTER OTHER PRN (16:15)
[2018-02-14 18:27] VITALS: BP 132/81; PULSE 62; RESP 17; TEMP 97.6; O2SAT 98
[2018-02-14] MEDS: ATORVASTATIN 40 MG TAB PO SCH (20:28)
[2018-02-14] MEDS ORDERED: OLANZapine 5 MG TAB PO SCH (21:00)
[2018-02-15 06:11] VITALS: BP 138/74; PULSE 62; RESP 18; TEMP 98.2; O2SAT 94
[2018-02-15 08:58] LABS: BICARBONATE 22.9 MEQ/L (21.0-32.0); CALCIUM 9.4 MG/DL (8.5-10.1); CREATININE 0.69 MG/DL (0.50-1.00)
[2018-02-15] MEDS: REMOVE OLD NICODERM (NICOTINE) PATCH T-DERMAL SCH (09:00)
[2018-02-15] MEDS: PROPRANOLOL HCL 20 MG TAB PO SCH ×2 (09:16→20:21)
[2018-02-15] MEDS: LITHIUM CARBONATE 450 MG CONTROLLED RELEASE TAB PO SCH ×2 (09:17→17:38)
[2018-02-15] MEDS: CLOPIDOGREL 75 MG TAB PO SCH (09:17)
[2018-02-15] MEDS ORDERED: OLANZapine IM 10 MG VIAL IM ONE (10:00)
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
[2018-02-15] MEDS ORDERED: OLANZapine IM 10 MG VIAL IM PRN (16:00)
[2018-02-15] MEDS: OLANZapine 5 MG TAB PO SCH (20:21)
[2018-02-15] MEDS: ATORVASTATIN 40 MG TAB PO SCH (20:21)
--- NOTE | 2018-02-16 07:56 | PD.TTN ---
Patient Problems 1. Discharge planning 2. Medication compliance 3. Knowledge deficit 4. Lack of coping skills Progress Toward Goals Provider Present: Dr. Joshua Diaz Provider Input: 02/15/18 vane is very paranoid and medications are being increased, meets criteria for further stabilization of psychotic symptoms 02/12/18 - Patient is on the same dose of [place] that she took at home. Possible discharge Sunday. Psychiatric Counselors Present: Cristina Painting LCSW, GABE Peter Psych Therapist Input: 02/15/18 may be in need of placement if placable, has family support 02/12/18 - Counselor will obtain collateral information. Patient reported yesterday during her biopsychosocial assessment that she "is perfectly fine." Group Spec/RT/OT/BRYANT Present: Kaushal Trujillo OT Group Spec/RT/OT/BRYANT Input: 02/15/18 does not attend groups 02/12/18 - Patient has not attended groups. Discharge Plan 02/12/18 - Patient will be discharged home when stable and will follow-up with her psychiatrist, . Documentation Scribe: GABE Peter Date Resolved: Feb 12, 2018 Cristina Painting LCSW Feb 16, 2018 07:56
[2018-02-16] MEDS: PROPRANOLOL HCL 20 MG TAB PO SCH (09:00)
[2018-02-16] MEDS: CLOPIDOGREL 75 MG TAB PO SCH (09:00)
[2018-02-16] MEDS: LITHIUM CARBONATE 450 MG CONTROLLED RELEASE TAB PO SCH ×2 (09:00→16:03)
[2018-02-16] MEDS: REMOVE OLD NICODERM (NICOTINE) PATCH T-DERMAL SCH (09:00)
--- NOTE | 2018-02-16 09:35 | HHI.PYPN ---
Subjective Chief Complaint: Hallucinations Remarks Chart reviewed. Patient discussed with nurse. Patient slept well. Per staff patient is refusing her medications and would not eat breakfast. Patient stated that she would accept a snack. Patient sitting in her room with the door closed and continues to be paranoid. She acknowledges that her moods have been high and low. She states that she is Bipolar, but she does not need any medications. Per previous note Zyprexa has been added to her medications at bedtime to help manage her mood. Mental Status Examination Appearance: Appropriate Consciousness: Alert Orientation: Person, Place (At least) Motor Activity: Other (No motor abnormalities noted) Speech: Unremarkable Language: Adequate Fund of Knowledge: Adequate Attention and Concentration: Adequate Memory: Impaired Mood: Other (Presently calm) Affect: Blunt Thought Process & Associations: Circumstantial Thought Content: Hallucinations, Delusional Hallucination Type: Other (Internally stimulated) Delusion Type: Paranoid Suicidal Ideation: No (Unreliable to contract for safety) Homicidal Ideation: No (Unreliable to contract for safety) Insight: Poor Judgment: Poor Results Vitals/IOs Vital Signs Date Time Temp Pulse Resp B/P (MAP) Pulse Ox O2 Delivery O2 Flow Rate FiO2 02/15/18 06:11 98.2 62 18 138/74 (95) 94 Assessment & Plan Problem List: (1) Bipolar disorder ICD Codes: F31.9 - Bipolar disorder, unspecified Status: Acute Assessment & Plan: Will continue with current treatment plan. Discharge planning in progress. Assessment & Plan Estimated LOS: days Justification for Cont. Inpt. Moving patient to a lower level of care may result in the patient's decompensation. Request HC Surrog/Guard Advoc?: Yes Problem Qualifiers (1) Bipolar disorder: Qualified Codes: F31.64 - Bipolar disorder, current episode mixed, severe, with psychotic features Chaya Valles Feb 16, 2018 09:35
[2018-02-17 06:19] VITALS: BP 168/94; PULSE 68; RESP 18; TEMP 98.6; O2SAT 98
[2018-02-17] MEDS: PROPRANOLOL HCL 20 MG TAB PO SCH ×2 (08:12→21:13)
[2018-02-17] MEDS: LITHIUM CARBONATE 450 MG CONTROLLED RELEASE TAB PO SCH ×2 (08:13→18:00)
[2018-02-17] MEDS: CLOPIDOGREL 75 MG TAB PO SCH (08:13)
[2018-02-17] MEDS: REMOVE OLD NICODERM (NICOTINE) PATCH T-DERMAL SCH (09:00)
--- NOTE | 2018-02-17 14:26 | HHI.PYPN ---
Subjective Chief Complaint: Hallucinations Remarks Reviewed electronic medical record discussed case with staff. Nurse reports that patient was compliant with her medications today, which she feels is indicative that the IM Zyprexa is working. Patient was a bit more social today came out to eat breakfast and stayed in the milieu until around lunchtime. Follow-up conducted in patient's room. Patient's mood is good and her affect is euthymic. Mental Status Examination Appearance: Appropriate Consciousness: Alert Orientation: Person, Place (At least) Motor Activity: Other (No motor abnormalities noted) Speech: Unremarkable Language: Adequate Fund of Knowledge: Adequate Attention and Concentration: Adequate Memory: Impaired Mood: Other (Presently calm) Affect: Blunt Thought Process & Associations: Circumstantial Thought Content: Hallucinations, Delusional Hallucination Type: Other (Internally stimulated) Delusion Type: Paranoid Suicidal Ideation: No (Unreliable to contract for safety) Homicidal Ideation: No (Unreliable to contract for safety) Insight: Poor Judgment: Poor Results Vitals/IOs Vital Signs Date Time Temp Pulse Resp B/P (MAP) Pulse Ox O2 Delivery O2 Flow Rate FiO2 02/17/18 06:19 98.6 68 18 168/94 (118) 98 Assessment & Plan Problem List: (1) Bipolar disorder ICD Codes: F31.9 - Bipolar disorder, unspecified Status: Acute Assessment & Plan Estimated LOS: Continue with current treatment plan as ordered. Attending psychiatrist will reevaluate tomorrow. Days Justification for Cont. Inpt. Moving this patient to a lower level of care would likely result in a decompensation. Request HC Surrog/Guard Advoc?: Yes Problem Qualifiers (1) Bipolar disorder: Qualified Codes: F31.64 - Bipolar disorder, current episode mixed, severe, with psychotic features Crystal Cruz Feb 17, 2018 14:26
[2018-02-17 18:12] VITALS: BP 113/92; PULSE 65; RESP 18; TEMP 97.1; O2SAT 98
[2018-02-17] MEDS: ATORVASTATIN 40 MG TAB PO SCH (21:13)
[2018-02-17] MEDS: OLANZapine 5 MG TAB PO SCH (21:13)
[2018-02-18 05:45] VITALS: BP 115/62; PULSE 55; RESP 16; TEMP 98.5; O2SAT 96
[2018-02-18] MEDS: CLOPIDOGREL 75 MG TAB PO SCH (09:00)
[2018-02-18] MEDS: LITHIUM CARBONATE 450 MG CONTROLLED RELEASE TAB PO SCH ×2 (09:00→17:24)
[2018-02-18] MEDS: REMOVE OLD NICODERM (NICOTINE) PATCH T-DERMAL SCH (09:00)
[2018-02-18] MEDS: PROPRANOLOL HCL 20 MG TAB PO SCH ×2 (09:00→21:00)
--- NOTE | 2018-02-18 14:04 | HHI.PYPN ---
Subjective Chief Complaint: Hallucinations Remarks Patient seen and examined. Chart reviewed. Case discussed with nursing staff. On my examination today, the patient is calm and cooperative. There is no evidence of residual paranoia. She was reportedly responding to internal stimuli per nursing staff overnight, but she denies any audiovisual hallucinations presently. She denies any SI or HI. Complains of some dry mouth but otherwise denies side effects from medications. No physical complaints. Review of Systems Except as stated in HPI: all other systems reviewed are Neg Mental Status Examination Appearance: Appropriate Consciousness: Alert Orientation: Person, Place (At least) Motor Activity: Other (No abnormal motor movements noted) Speech: Unremarkable Language: Adequate Fund of Knowledge: Adequate Attention and Concentration: Adequate Memory: Impaired Mood: Appropriate Affect: Appropriate Thought Process & Associations: Intact Thought Content: Appropriate Hallucination Type: None Delusion Type: None Suicidal Ideation: No Homicidal Ideation: No Insight: Poor Judgment: Poor Results Labs Labs reviewed. Vitals/IOs Vital Signs Date Time Temp Pulse Resp B/P (MAP) Pulse Ox O2 Delivery O2 Flow Rate FiO2 02/18/18 05:45 98.5 55 16 115/62 (79) 96 Assessment & Plan Problem List: (1) Bipolar disorder ICD Codes: F31.9 - Bipolar disorder, unspecified Status: Acute Assessment & Plan Continue lithium/Zyprexa as ordered. Patient seems to be responding to this medication combination. I will encourage fluids and have ordered Biotene as needed for dry mouth. Continue to monitor on the inpatient unit. Continue other medications and care as ordered. Justification for Cont. Inpt. Risk for decompensation in less restrictive environment. Discharge Planning Case discussed with counselor who will work on discharge planning. Request HC Surrog/Guard Advoc?: Yes Problem Qualifiers (1) Bipolar disorder: Qualified Codes: F31.64 - Bipolar disorder, current episode mixed, severe, with psychotic features Luis Fernando Diaz MD Feb 18, 2018 14:04
[2018-02-18 18:38] VITALS: BP 113/64; PULSE 59; RESP 16; TEMP 97.6; O2SAT 95
[2018-02-18] MEDS: OLANZapine 5 MG TAB PO SCH (21:30)
[2018-02-18] MEDS: ATORVASTATIN 40 MG TAB PO SCH (21:31)
[2018-02-19 06:18] VITALS: BP 125/64; PULSE 95; RESP 17; TEMP 98.1; O2SAT 97
[2018-02-19] MEDS: LITHIUM CARBONATE 450 MG CONTROLLED RELEASE TAB PO SCH ×2 (09:10→17:26)
[2018-02-19] MEDS: CLOPIDOGREL 75 MG TAB PO SCH (09:10)
[2018-02-19] MEDS: REMOVE OLD NICODERM (NICOTINE) PATCH T-DERMAL SCH (09:10)
[2018-02-19] MEDS: PROPRANOLOL HCL 20 MG TAB PO SCH ×2 (09:10→20:33)
[2018-02-19] MEDS ORDERED: diphenhydrAMINE HCL 50 MG/ML VIAL IM ONE (09:15)
[2018-02-19 09:49] VITALS: BP 136/63; PULSE 84; RESP 18; TEMP 97.9; O2SAT 96
--- NOTE | 2018-02-19 09:49 | HHI.PYPN ---
Subjective Chief Complaint: Hallucinations Remarks Patient seen and examined with nurse. Chart reviewed. Case discussed with nursing staff. Per nursing staff, patient suspicious regarding medications and possibly responding to internal stimulation. Case discussed in treatment team. On my examination today, the patient is electively mute. She does follow commands, although there is some negativism. She is watchful and appears quite suspicious. I did perceive some cog-wheeling on exam, and I have ordered a one- time dose of Benadryl IM. Nurse reports that following administration of this agent, patient was up and attending to ADLs at sink and spoke with nurse, although she remains quite paranoid per nursing report. No other side effects from medications. No evidence of physical distress. Review of Systems ROS Limitations: Uncooperative, Poor Historian Other Limited ROS Mental Status Examination Appearance: Appropriate Consciousness: Alert Orientation: Person, Place (At least) Motor Activity: Other (Mild cog-wheeling. No posturing. No stereotypies. No dystonias or dyskinesias.) Speech: Other (mute) Affect: Blunt Hallucination Type: Other (appears internally stimulated) Delusion Type: Other (appears watchful and guarded) Insight: Poor Judgment: Poor Mental Status Exam Remarks MSE limited as patient is mute. Results Labs Labs reviewed. No new labs. Vitals/IOs Vital Signs Date Time Temp Pulse Resp B/P (MAP) Pulse Ox O2 Delivery O2 Flow Rate FiO2 02/19/18 06:18 98.1 95 17 125/64 (84) 97 Assessment & Plan Problem List: (1) Bipolar disorder ICD Codes: F31.9 - Bipolar disorder, unspecified Status: Acute Assessment & Plan Patient mute on my exam today, more interactive with nursing after Benadryl IM. Unclear whether muteness is behavioral, secondary to EPS, secondary to paranoia or due to some other factor. Catatonia is not suspected based on lack of associated features. I will start a very small dose of scheduled anticholinergic as patient does have some cog-wheeling on exam and seemed to improve with Benadryl IM, but will need to be mindful of effect on cognition in this elderly patient. To consider further titration of Zyprexa to target what I suspect is ongoing underlying psychosis. Continue other medications and care as ordered. Justification for Cont. Inpt. Med changes. Risk for decompensation in less restrictive environment. Concern for ongoing impairments in reality construction. Discharge Planning Pending psychiatric stabilization. Counselor to reach out the son today to discuss discharge plan. Request HC Surrog/Guard Advoc?: Yes Problem Qualifiers (1) Bipolar disorder: Qualified Codes: F31.64 - Bipolar disorder, current episode mixed, severe, with psychotic features Luis Fernando Diaz MD February 19, 2018 09:49
[2018-02-19 17:50] VITALS: BP 120/63; PULSE 91; RESP 18; TEMP 97.1; O2SAT 93
[2018-02-19] MEDS: BENZTROPINE MESYLATE 1 MG TAB PO SCH (20:33)
[2018-02-19] MEDS: ATORVASTATIN 40 MG TAB PO SCH (20:34)
[2018-02-19] MEDS: OLANZapine 5 MG TAB PO SCH (20:34)
[2018-02-20 04:31] VITALS: BP 113/63; PULSE 81; RESP 17; TEMP 97.1; O2SAT 94
[2018-02-20 05:25] VITALS: BP 142/72; PULSE 76; RESP 14; TEMP 98.6
[2018-02-20 05:36] VITALS: BP 142/72; PULSE 76; RESP 14; TEMP 98.6; O2SAT 90
[2018-02-20] MEDS: BENZTROPINE MESYLATE 1 MG TAB PO SCH ×3 (09:00→19:30)
[2018-02-20] MEDS: PROPRANOLOL HCL 20 MG TAB PO SCH ×2 (09:00→20:26)
[2018-02-20] MEDS: CLOPIDOGREL 75 MG TAB PO SCH ×2 (09:00→18:31)
[2018-02-20] MEDS: REMOVE OLD NICODERM (NICOTINE) PATCH T-DERMAL SCH (09:00)
[2018-02-20] MEDS: LITHIUM CARBONATE 450 MG CONTROLLED RELEASE TAB PO SCH ×2 (09:28→18:25)
--- NOTE | 2018-02-20 13:31 | HHI.PYPN ---
Subjective Chief Complaint: Hallucinations Remarks Patient seen and examined with nurse. Chart reviewed. Case discussed with nursing staff. Patient only accepted lithium this morning. She is eating better today. She has been calm so far today but had an episode of yelling out yesterday evening. Case discussed in treatment team. On my examination today, patient is oppositional and paranoid. She insists "I am not depressed, I am happy" although her affect is quite dysphoric. She complains of dry mouth but otherwise reports no side effects from medications. No physical complaints. She complains of feeling bored on the unit, and I have encouraged her to participate in groups and have offered to allow her to participate in 2600 groups as she is able as these may be more stimulating for her. Spoke with patient's son/HCS re: patient's complaints of dry mouth. After discussion of pharmacotherapeutic options, we settle on switching to Geodon PO/ IM in hopes that this will cause less dry mouth. We discuss patient's legal status. I spent ~14min in telephone consultation with son. Review of Systems Except as stated in HPI: all other systems reviewed are Neg Mental Status Examination Appearance: Appropriate Consciousness: Alert Orientation: Person, Place (At least) Motor Activity: Other (No motor abnormalities noted) Speech: Unremarkable Language: Adequate Fund of Knowledge: Adequate (Fair) Attention and Concentration: Adequate Mood: Other (Dysphoric) Affect: Other (Restricted) Thought Process & Associations: Circumstantial Thought Content: Delusional Hallucination Type: None Delusion Type: Paranoid Suicidal Ideation: No Homicidal Ideation: No Insight: Poor Judgment: Poor Results Labs Labs reviewed Vitals/IOs Vital Signs Date Time Temp Pulse Resp B/P (MAP) Pulse Ox O2 Delivery O2 Flow Rate FiO2 02/20/18 05:36 98.6 76 14 142/72 (95) 90 Intake and Output 02/20/18 02/20/18 02/21/18 08:00 16:00 00:00 Intake Total 400 ml 840 ml Balance 400 ml 840 ml Assessment & Plan Problem List: (1) Bipolar disorder ICD Codes: F31.9 - Bipolar disorder, unspecified Status: Acute Assessment & Plan Discontinue Zyprexa and replace with Geodon 40mg BIDPC PO/IM with plans to titrate to effect. Encouraged adherence with all medications. Patient may attend 2600 groups as able. Continue other medications and care as ordered. Justification for Cont. Inpt. Med changes. Impairment in reality construction. Risk for decompensation in less restrictive environment. Discharge Planning Pending psychiatric stabilization. Request HC Surrog/Guard Advoc?: Yes Problem Qualifiers (1) Bipolar disorder: Qualified Codes: F31.64 - Bipolar disorder, current episode mixed, severe, with psychotic features Luis Fernando Diaz MD February 20, 2018 13:31
--- NOTE | 2018-02-20 16:21 | PD.TTN ---
Patient Problems 1. Discharge planning 2. Medication compliance 3. Knowledge deficit 4. Lack of coping skills Progress Toward Goals Provider Present: Dr. Joshua Diaz Provider Input: 02/19/18 pt is slowly improving 02/15/18 patietn is very paranoid and medications are being increased, meets criteria for further stabilization of psychotic symptoms 02/12/18 - Patient is on the same dose of [place] that she took at home. Possible discharge Sunday. Psychiatric Counselors Present: Cristina Painting LCSW, GABE Peter Psych Therapist Input: 02/19/18 s/w son in [place] and he states he cannot come down and is unable to support mother but would hope she wants to move to him, pt refused this, she wants to go home but guarded and suspicious to discuss this with this counselor 02/15/18 may be in need of placement if placable, has family support 02/12/18 - Counselor will obtain collateral information. Patient reported yesterday during her biopsychosocial assessment that she "is perfectly fine." Group Spec/RT/OT/BRYANT Present: Kaushal Trujillo OT Group Spec/RT/OT/BRYANT Input: 02/19/18 does not attend groups 02/15/18 does not attend groups 02/12/18 - Patient has not attended groups. Discharge Plan 02/12/18 - Patient will be discharged home when stable and will follow-up with her psychiatrist, . Documentation Scribe: GABE Peter Date Resolved: Feb 12, 2018 Cristina Painting LCSW February 20, 2018 16:21
[2018-02-20 18:00] VITALS: BP 109/67; PULSE 75; RESP 14; TEMP 98.2; O2SAT 92
[2018-02-20] MEDS: ZIPRASIDONE HCL 40 MG CAP PO SCH (18:00)
[2018-02-20] MEDS: ZIPRASIDONE MESYLATE 20 MG VIAL IM PRN (18:38)
[2018-02-20] MEDS: ATORVASTATIN 40 MG TAB PO SCH (20:26)
[2018-02-21 05:20] VITALS: BP 120/59; PULSE 57; RESP 16; TEMP 98.4; O2SAT 93
[2018-02-21 06:22] VITALS: BP 120/59; PULSE 57; RESP 16; TEMP 98.4; O2SAT 93
[2018-02-21] MEDS: CLOPIDOGREL 75 MG TAB PO SCH (09:48)
[2018-02-21] MEDS: PROPRANOLOL HCL 20 MG TAB PO SCH ×2 (09:48→20:58)
[2018-02-21] MEDS: LITHIUM CARBONATE 450 MG CONTROLLED RELEASE TAB PO SCH ×2 (09:48→18:13)
[2018-02-21] MEDS: ZIPRASIDONE HCL 40 MG CAP PO SCH ×2 (09:48→18:13)
[2018-02-21] MEDS: BENZTROPINE MESYLATE 1 MG TAB PO SCH ×2 (09:48→20:58)
[2018-02-21] MEDS: REMOVE OLD NICODERM (NICOTINE) PATCH T-DERMAL SCH (09:54)
--- NOTE | 2018-02-21 11:14 | HHI.PYPN ---
Subjective Chief Complaint: Hallucinations Remarks Patient seen and case discussed with nursing staff. Chart reviewed. Per nursing staff, patient more cooperative this morning although she did refuse Geodon by mouth yesterday evening. Oral intake reviewed. For me today, patient seems more lucid and less paranoid. She is fairly appropriate in conversation, if a little tangential at times. No evident side effects from medications. No physical complaints. Review of Systems ROS Limitations: Poor Historian Except as stated in HPI: all other systems reviewed are Neg Mental Status Examination Appearance: Appropriate Consciousness: Alert Orientation: Person, Place (At least) Motor Activity: Other (No abnormal motor movements noted) Speech: Unremarkable Language: Adequate Fund of Knowledge: Adequate (Fair) Attention and Concentration: Adequate Mood: Appropriate Affect: Blunt Thought Process & Associations: Tangential Thought Content: Delusional Hallucination Type: None Delusion Type: Paranoid (Perhaps less so today) Suicidal Ideation: No (No SI voiced) Homicidal Ideation: No (No HI voiced) Insight: Poor Judgment: Poor Results Labs Labs reviewed Vitals/IOs Vital Signs Date Time Temp Pulse Resp B/P (MAP) Pulse Ox O2 Delivery O2 Flow Rate FiO2 02/21/18 06:22 98.4 57 16 120/59 (79) 93 Intake and Output 02/21/18 02/21/18 02/22/18 08:00 16:00 00:00 Intake Total 0 ml 240 ml Balance 0 ml 240 ml Assessment & Plan Problem List: (1) Bipolar disorder ICD Codes: F31.9 - Bipolar disorder, unspecified Status: Acute Assessment & Plan Continue Geodon augmenting lithium as ordered. To consider further titration of the Geodon. Continue to monitor on the inpatient unit. Continue other medications and care as ordered. The patient's case was presented to the [place] [facility] and placed in continuance for one week with son to serve as health care surrogate. Justification for Cont. Inpt. High risk for decompensation in less restrictive environment Discharge Planning Pending psychiatric stabilization. Possible discharge home with home healthcare. Case discussed with counselor. Request HC Surrog/Guard Advoc?: Yes Problem Qualifiers (1) Bipolar disorder: Qualified Codes: F31.64 - Bipolar disorder, current episode mixed, severe, with psychotic features Luis Fernando Diaz MD February 21, 2018 11:14
[2018-02-21 18:15] VITALS: BP 106/59; PULSE 58; RESP 17; TEMP 98.3; O2SAT 98
[2018-02-21] MEDS: ATORVASTATIN 40 MG TAB PO SCH (20:58)
[2018-02-22 05:49] VITALS: BP 128/59; PULSE 50; PULSE 58; RESP 15; TEMP 97.7; O2SAT 94
[2018-02-22] MEDS: REMOVE OLD NICODERM (NICOTINE) PATCH T-DERMAL SCH (09:00)
[2018-02-22] MEDS: BENZTROPINE MESYLATE 1 MG TAB PO SCH ×2 (09:00→21:27)
[2018-02-22] MEDS: ZIPRASIDONE HCL 40 MG CAP PO SCH ×2 (10:02→20:20)
[2018-02-22] MEDS: CLOPIDOGREL 75 MG TAB PO SCH (10:02)
[2018-02-22] MEDS: LITHIUM CARBONATE 450 MG CONTROLLED RELEASE TAB PO SCH ×2 (10:04→20:20)
[2018-02-22] MEDS: PROPRANOLOL HCL 20 MG TAB PO SCH ×2 (10:04→21:27)
--- NOTE | 2018-02-22 11:27 | HHI.PYPN ---
Subjective Chief Complaint: Hallucinations Remarks Patient seen and examined. Chart reviewed. Case discussed with nursing staff. On my examination today, the patient seems much more calm and cooperative than in previous days. Paranoia is decreased. She denies AVH. She denies SI or HI. She is open to Home health care on discharge. She complains of some ongoing dry mouth and is requesting that Cogentin be titrated. I have cautioned her that this may exacerbate the dry mouth, but the patient insists that the opposite has been the case in the past. She does have some ongoing cogwheeling on exam and so I will titrate the patient's Cogentin as she asks. No other physical complaints. Review of Systems Except as stated in HPI: all other systems reviewed are Neg Mental Status Examination Appearance: Appropriate Consciousness: Alert Orientation: Person, Place (At least) Motor Activity: Other (Mild cogwheeling on exam. No other motoric abnormalities noted.) Speech: Unremarkable Language: Adequate Fund of Knowledge: Adequate (Fair) Attention and Concentration: Adequate Mood: Appropriate Affect: Blunt Thought Process & Associations: Tangential Thought Content: Delusional Hallucination Type: None Delusion Type: Paranoid (Decreasing) Suicidal Ideation: No (No SI voiced) Homicidal Ideation: No (No HI voiced) Insight: Poor Judgment: Poor Results Labs Labs reviewed Vitals/IOs Vital Signs Date Time Temp Pulse Resp B/P (MAP) Pulse Ox O2 Delivery O2 Flow Rate FiO2 02/22/18 05:49 97.7 58 15 128/59 (82) 94 Intake and Output 02/22/18 02/22/18 02/23/18 08:00 16:00 00:00 Intake Total 360 ml Balance 360 ml Assessment & Plan Problem List: (1) Bipolar disorder ICD Codes: F31.9 - Bipolar disorder, unspecified Status: Acute Assessment & Plan Patient seems to be responding nicely to current dose of Geodon, and I will continue this along with her lithium. I will titrate the patient's Cogentin to 0.5 mg twice daily to target motor symptoms and will monitor for worsening of dry mouth. Continue to monitor on the inpatient unit. Continue other medications and care as ordered. Justification for Cont. Inpt. Med changes. Risk for decompensation in less restrictive environment. Discharge Planning Possible discharge with home health care after the weekend. Request HC Surrog/Guard Advoc?: Yes Problem Qualifiers (1) Bipolar disorder: Qualified Codes: F31.64 - Bipolar disorder, current episode mixed, severe, with psychotic features Luis Fernando Diaz MD February 22, 2018 11:27
[2018-02-22] MEDS: ATORVASTATIN 40 MG TAB PO SCH (21:27)
[2018-02-23 06:44] VITALS: BP 107/53; PULSE 54; RESP 15; TEMP 98.2; O2SAT 96
[2018-02-23] MEDS: REMOVE OLD NICODERM (NICOTINE) PATCH T-DERMAL SCH (09:00)
[2018-02-23] MEDS: PROPRANOLOL HCL 20 MG TAB PO SCH ×2 (09:30→21:08)
[2018-02-23] MEDS: BENZTROPINE MESYLATE 1 MG TAB PO SCH ×2 (09:30→21:08)
[2018-02-23] MEDS: LITHIUM CARBONATE 450 MG CONTROLLED RELEASE TAB PO SCH ×2 (09:30→18:09)
[2018-02-23] MEDS: CLOPIDOGREL 75 MG TAB PO SCH (09:30)
[2018-02-23] MEDS: ZIPRASIDONE HCL 40 MG CAP PO SCH ×2 (09:31→18:10)
--- NOTE | 2018-02-23 12:39 | HHI.PYPN ---
Subjective Chief Complaint: Hallucinations Remarks Patient was seen and case discussed with nursing. Per nursing she has been irritable and sarcastic. However, from my interview she is pleasant and cooperative. She says she is feeling "wonderful." She is perseverant on discharge. Patient claims that her hallucinations have resolved. She is asking about going home. Does not mention dry mouth today Mental Status Examination Appearance: Appropriate Consciousness: Alert Orientation: Person, Place (At least) Motor Activity: Other (Mild cogwheeling on exam. No other motoric abnormalities noted.) Speech: Unremarkable Language: Adequate Fund of Knowledge: Adequate (Fair) Attention and Concentration: Adequate Mood: Appropriate Affect: Blunt Thought Process & Associations: Tangential Thought Content: Delusional Hallucination Type: None Delusion Type: Paranoid (Decreasing) Suicidal Ideation: No (No SI voiced) Homicidal Ideation: No (No HI voiced) Insight: Poor Judgment: Poor Results Vitals/IOs Vital Signs Date Time Temp Pulse Resp B/P (MAP) Pulse Ox O2 Delivery O2 Flow Rate FiO2 02/23/18 06:44 98.2 54 15 107/53 (71) 96 Intake and Output 02/23/18 02/23/18 02/24/18 08:00 16:00 00:00 Intake Total 480 ml Balance 480 ml Assessment & Plan Problem List: (1) Bipolar disorder ICD Codes: F31.9 - Bipolar disorder, unspecified Status: Acute Assessment & Plan Continue current treatment plan Justification for Cont. Inpt. Patient would decompensate in a less restrictive setting Request HC Surrog/Guard Advoc?: Yes Problem Qualifiers (1) Bipolar disorder: Qualified Codes: F31.64 - Bipolar disorder, current episode mixed, severe, with psychotic features Benito Medina DO February 23, 2018 12:39
[2018-02-23 18:27] VITALS: BP 137/66; PULSE 62; RESP 17; TEMP 97.4; O2SAT 98
[2018-02-23] MEDS: ATORVASTATIN 40 MG TAB PO SCH (21:08)
[2018-02-24 05:43] VITALS: BP 123/63; PULSE 55; RESP 18; TEMP 98.1; O2SAT 95
[2018-02-24] MEDS: REMOVE OLD NICODERM (NICOTINE) PATCH T-DERMAL SCH (09:00)
[2018-02-24] MEDS: BENZTROPINE MESYLATE 1 MG TAB PO SCH ×2 (09:02→20:33)
[2018-02-24] MEDS: PROPRANOLOL HCL 20 MG TAB PO SCH ×2 (09:02→20:33)
[2018-02-24] MEDS: ZIPRASIDONE HCL 40 MG CAP PO SCH ×2 (09:02→18:01)
[2018-02-24] MEDS: CLOPIDOGREL 75 MG TAB PO SCH (09:02)
[2018-02-24] MEDS: LITHIUM CARBONATE 450 MG CONTROLLED RELEASE TAB PO SCH ×2 (09:02→18:01)
[2018-02-24] MEDS: PADIMATE (CHAPSTICK) 4.5 GM TUBE TOPICAL PRN (09:03)
[2018-02-24] MEDS: ACETAMINOPHEN 325 MG TAB PO PRN (09:59)
--- NOTE | 2018-02-24 13:16 | HHI.PYPN ---
Subjective Chief Complaint: Hallucinations Remarks Patient was seen and case discussed with nursing. Patient is angry and irritable during the interview. She is sarcastic and refusing to get out of bed to go into the day room. She lays in bed in an awkward position staring at the ceiling. She does deny auditory or visual hallucinations. Mental Status Examination Appearance: Appropriate Consciousness: Alert Orientation: Person, Place (At least) Motor Activity: Other (Mild cogwheeling on exam. No other motoric abnormalities noted.) Speech: Unremarkable Language: Adequate Fund of Knowledge: Adequate (Fair) Attention and Concentration: Adequate Mood: Appropriate Affect: Irritable Thought Process & Associations: Tangential Thought Content: Delusional Hallucination Type: None Delusion Type: Paranoid (Decreasing) Suicidal Ideation: No (No SI voiced) Homicidal Ideation: No (No HI voiced) Insight: Poor Judgment: Poor Results Vitals/IOs Vital Signs Date Time Temp Pulse Resp B/P (MAP) Pulse Ox O2 Delivery O2 Flow Rate FiO2 02/24/18 05:43 98.1 55 18 123/63 (83) 95 Intake and Output 02/24/18 02/24/18 02/25/18 08:00 16:00 00:00 Intake Total 300 ml Balance 300 ml Assessment & Plan Problem List: (1) Bipolar disorder ICD Codes: F31.9 - Bipolar disorder, unspecified Status: Acute Assessment & Plan Continue current treatment plan Justification for Cont. Inpt. Patient would decompensate in a less restrictive setting Request HC Surrog/Guard Advoc?: Yes Problem Qualifiers (1) Bipolar disorder: Qualified Codes: F31.64 - Bipolar disorder, current episode mixed, severe, with psychotic features Benito Medina DO February 24, 2018 13:15
[2018-02-24 17:52] VITALS: BP 120/72; PULSE 56; RESP 18; TEMP 97.9; O2SAT 98
[2018-02-24] MEDS: ATORVASTATIN 40 MG TAB PO SCH (20:33)
[2018-02-25 05:43] VITALS: BP 114/58; PULSE 64; RESP 16; TEMP 98; O2SAT 98
[2018-02-25] MEDS: REMOVE OLD NICODERM (NICOTINE) PATCH T-DERMAL SCH (09:00)
[2018-02-25] MEDS: BENZTROPINE MESYLATE 1 MG TAB PO SCH ×2 (09:22→20:46)
[2018-02-25] MEDS: CLOPIDOGREL 75 MG TAB PO SCH (09:23)
[2018-02-25] MEDS: ZIPRASIDONE HCL 40 MG CAP PO SCH (09:23)
[2018-02-25] MEDS: PROPRANOLOL HCL 20 MG TAB PO SCH ×2 (09:23→20:46)
[2018-02-25] MEDS: LITHIUM CARBONATE 450 MG CONTROLLED RELEASE TAB PO SCH ×3 (09:23→18:00)
--- NOTE | 2018-02-25 10:51 | HHI.PYPN ---
Subjective Chief Complaint: Hallucinations Remarks Patient seen and examined. Chart reviewed. Case discussed with nursing staff who reports patient remains a little paranoid and "cantankerous." On my exam, patient is somewhat sarcastic and irritable. When I ask how she is doing, she replies "that's the stupidest question I've ever heard." Likewise, when I ask if she is having side effects from medications, patient replies that "even a 1- year-old can see" that she is experiencing dry mouth (although mucous membranes actually appear better hydrated today). No overt psychotic symptoms. No other side effects from medications. No physical complaints. Agreeable to [facility]. Review of Systems Except as stated in HPI: all other systems reviewed are Neg Mental Status Examination Appearance: Appropriate Consciousness: Alert Orientation: Person, Place Motor Activity: Other (No motor abnormalities noted. No hand tremor, no cogwheeling, no dystonia, no dyskinesia) Speech: Unremarkable Language: Adequate Fund of Knowledge: Adequate (Fair) Attention and Concentration: Adequate Mood: Irritable (Mild) Affect: Irritable Thought Process & Associations: Intact, Logical, Linear Thought Content: Appropriate (Fairly appropriate on my exam) Hallucination Type: None Delusion Type: Other (Perhaps some mild residual paranoia per nursing report. No delusions on my exam.) Suicidal Ideation: No (No SI voiced) Homicidal Ideation: No (No HI voiced) Mental Status Exam Remarks Insight and judgment are fair to poor at best. Results Labs Labs reviewed. Vitals/IOs Vital Signs Date Time Temp Pulse Resp B/P (MAP) Pulse Ox O2 Delivery O2 Flow Rate FiO2 02/25/18 05:43 98.0 64 16 114/58 (76) 98 Intake and Output 02/25/18 02/25/18 02/26/18 08:00 16:00 00:00 Intake Total 0 ml Balance 0 ml Assessment & Plan Problem List: (1) Bipolar disorder ICD Codes: F31.9 - Bipolar disorder, unspecified Status: Acute Assessment & Plan Patient is improving with current therapy. I will titrate Geodon to 60mg BIDPC to target residual symptoms and continue lithium as ordered. I have initiated [facility] referral. Continue to monitor on the inpatient unit. Continue other medications and care as ordered. Justification for Cont. Inpt. Medication changes. Final discharge planning. Discharge Planning Possible discharge tomorrow or Sunday with home health care. Request HC Surrog/Guard Advoc?: Yes Problem Qualifiers (1) Bipolar disorder: Qualified Codes: F31.64 - Bipolar disorder, current episode mixed, severe, with psychotic features Luis Fernando Diaz MD February 25, 2018 10:51
--- NOTE | 2018-02-25 12:18 | HHI.FF ---
Face to Face Verification Diagnosis: (1) Bipolar disorder Physical Therapy Order: Evaluate and Treat Occupational Therapy Order: Evaluate and Treat Home Health Nursing Order: Signs/symptoms of disease process Nursing assessment with vital signs Instructions: To include home psychiatric nursing. Nursing Support Worker Order: To Evaluate: Living conditions/environment, Support services Order: To Provide: Long range planning, Community services I have seen patient Cristina Perez on 02/25/18. My clinical findings support the need for the requested home health care services because: Need for psychosocial assistance I certify that my clinical findings support that this patient is homebound because: Need for psychosocial assistance Luis Fernando Diaz MD February 25, 2018 12:18
[2018-02-25] MEDS: PADIMATE (CHAPSTICK) 4.5 GM TUBE TOPICAL PRN (12:56)
[2018-02-25] MEDS: ZIPRASIDONE HCL 60 MG CAP PO SCH ×2 (17:58→18:00)
[2018-02-25 18:19] VITALS: BP 136/65; PULSE 52; RESP 18; TEMP 97.8; O2SAT 98
[2018-02-25] MEDS: ATORVASTATIN 40 MG TAB PO SCH (20:46)
[2018-02-25 21:00] VITALS: BP 123/67; PULSE 61
[2018-02-26 04:00] VITALS: BP 106/54; PULSE 98; RESP 16; TEMP 97.9; O2SAT 98
[2018-02-26] MEDS: REMOVE OLD NICODERM (NICOTINE) PATCH T-DERMAL SCH (09:00)
[2018-02-26] MEDS: ZIPRASIDONE HCL 60 MG CAP PO SCH (09:00)
[2018-02-26] MEDS: LITHIUM CARBONATE 450 MG CONTROLLED RELEASE TAB PO SCH (09:01)
[2018-02-26] MEDS: BENZTROPINE MESYLATE 1 MG TAB PO SCH (09:01)
[2018-02-26] MEDS: PROPRANOLOL HCL 20 MG TAB PO SCH (09:01)
[2018-02-26] MEDS: CLOPIDOGREL 75 MG TAB PO SCH (09:01)
[2018-02-26] MEDS: ZIPRASIDONE MESYLATE 20 MG VIAL IM PRN (09:22)
[2018-02-26] MEDS ORDERED: GEOD60CA PO (11:46)
[2018-02-26] MEDS ORDERED: LITH450T PO (11:46)
[2018-02-26] MEDS ORDERED: Benztropine PO (11:46)
--- NOTE | 2018-02-26 11:46 | HHI.DS ---
Psychiatry Discharge Summary Inpatient Psychiatric care?: Yes Advance Directive: No Reason Not Provided: DECLINED Mental Health AdvanceDirective: No Health Care Proxy: No Admission Admission Date Feb 10, 2018 at 15:27 Admission Diagnosis: (1) Unspecified psychosis ICD Code: F29 - Unspecified psychosis not due to a substance or known physiological condition (2) History of bipolar disorder ICD Code: Z86.59 - Personal history of other mental and behavioral disorders Brief History Ms. Perez is a 72-year-old female with a reported history of bipolar disorder who presented to the emergency department voluntarily complaining of auditory hallucinations. Reviewing the electronic medical record, I note this is patient 's first visit to [facility]. Patient seen and examined. Chart reviewed. Case discussed with nursing staff who reports patient has been quite paranoid and reportedly articulated a belief that nurse was trying to kill her. She is also paranoid regarding medications per nursing staff. On my examination today, the patient reports that she has experienced "noises in my head over the years. Voices in my head. Birds tinkling." She reports that she also occasionally hears a persons voice telling her, for example, to throw a rock at someone else. She denies that the voices are worse/different than usual. She also reports on occasion that she feels like people are watching her and following her. She reports that both the paranoia and hallucinations have occurred before, and these have always responded to nothing more than lithium therapy. I can elicit no ideas of reference, no thought insertion or withdrawal or other delusional material. She d the patient is a 72-year-old enies any other hallucinatory material. Mood is reportedly stable and I can elicit no depressive or hypomanic/manic symptoms. No reported sleep or appetite disturbance. She denies any suicidal or homicidal ideation, intent or plan. The remainder of the psychiatric ROS is negative. The patient has no acute physical complaints. Tobacco Use In Past 30 Days: No Tobacco Past 30 Days Alcohol Use: Never Hospital Course Patient was admitted to a locked, inpatient psychiatric unit. Appropriate precautions were in place throughout patient's hospital stay. Patient was seen and examined on the unit by psychiatry and also visited by counselor. Psychotropic medications were adjusted. There was no evidence of any suicidality or homicidality on the inpatient unit. Patient's self-care improved with treatment of her underlying mental illness. Patient's behavior improved with treatment of her mental illness. She did, even on day of discharge, remain somewhat oppositional and sarcastic, but this is felt to be a feature of her baseline personality. Collateral information was obtained from patient's son. On the day of discharge: Patient seen and examined. Chart reviewed. Case discussed with nursing staff. Patient did refuse her PO Geodon this morning but has otherwise posed no significant behavioral problem. Case discussed in treatment team. On my examination today, patient is requesting discharge from the inpatient psychiatric unit today. She remains acerbic and oppositional. She denies any suicidal or homicidal ideation, intent or plan and contracts for safety. I can elicit no depressive or hypomanic/manic symptoms. She denies any audiovisual hallucinations, and I can elicit no delusional material. She reports no side effects from medications. I have encouraged adherence with medications in outpatient setting. I have discussed with her how to manage dry mouth, which she has complained of previously, and have recommended good hydration along with Biotene mouthwash as needed and sugar -free hard candies. She has no acute physical complaints. Weighing the relevant factors and based on the available evidence, I general purchasing agent that the patient no longer meets criteria for involuntary psychiatric hospitalization. There is no evidence of imminent risk of harm to self or others, nor is there evidence of self-care deficit to support ongoing involuntary psychiatric hospitalization. I do think that the patient would benefit from ongoing hospitalization with the goal of placement, e.g. in an SENIOR CARE as I feel she could benefit from a structured living environment, but she has declined. I have no basis to retain the patient any longer involuntarily and so will arrange for her discharge today home with home health care. Psychiatric follow-up as arranged by counselor. Patient also to follow up with primary care. I have counseled the patient to return to the psychiatric emergency room for any concerning psychiatric symptoms as part of a general safety plan. Results Blood Pressure 106 / 54 Vital Signs Date Time Temp Pulse Resp B/P (MAP) Pulse Ox O2 Delivery O2 Flow Rate FiO2 02/26/18 04:00 97.9 98 16 106/54 (71) 98 Laboratory Results Test 02/11/18 07:35 02/15/18 07:46 Cholesterol Level 155 MG/DL (120-200) HDL Cholesterol 86.8 MG/DL (40.0-60.0) Hemoglobin A1c 5.2 % (4.3-6.0) LDL Cholesterol 56 MG/DL (0-99) Triglycerides Level 61 MG/DL (42-150) Dupuyer Level 0.9 MEQ/L (0.5-1.5) Summary of Procedures None done Imaging None done Pending results at discharge: No Medications # of Antipsychotic meds at D/C: 1 Approp Antipsych med options 1 - Minimum of three failed multiple trials of monotherapy. 2 - Documented plan to taper to monotherapy due to previous use of multiple meds OR cross-taper in progress at D/C. 3 - Documentation of augmentation of Clozapine. 4 - Justification other than those listed in allowable values 1-3, document here : Discharge Discharge Date: February 26, 2018 Discharge Diagnosis: (1) Bipolar I disorder, most recent episode mixed, in remission Diagnosis: Principal ICD Code: F31.70 - Bipolar disorder, currently in remission, most recent episode unspecified Pt Condition on Discharge: Fair Discharge Disposition: Disch w/ Home Health Serv Discharge Instructions Diet Instructions: As Tolerated, No Restrictions Activities you can perform: Weight Bearing as [place] Scheduled Appointment: [facility] New Orders: BASIC METABOLIC PROF - 1 Week New Medications: [place]er Carbonate ER (Dup[place]er Carbonate ER) 450 Mg Tab 450 MG PO BIDPC for Mental Health for 15 Days, TAB 1 Refill Ziprasidone (Geodon) 60 Mg Cap 60 MG PO BIDPC for Mental Health for 15 Days, CAP 1 Refill [Benztropine] () 1 MG TAB 0.5 MG PO Q12HR for Side effect management for 15 Days, 1 Refill Continued Medications: Atorvastatin (Atorvastatin) 40 Mg Tab 40 MG PO HS for Cholesterol Management, #30 TAB 0 Refills Clopidogrel (Clopidogrel) 75 Mg Tab 75 MG PO DAILY for Blood Clot Prevention, #30 TAB 0 Refills Propranolol (Propranolol) 20 Mg Tab 20 MG PO Q12HR, #60 TAB 0 Refills Discontinued Medications: [place]er Citrate (Dupuyer) 8 Meq/5 Ml (5 Ml) Solution 450 MG PO DAILY Discharge Time > 30 minutes Mental Status Examination Appearance: Appropriate Consciousness: Alert Orientation: x4 Motor Activity: Other (No abnormal motor movements noted.) Speech: Unremarkable Language: Adequate Fund of Knowledge: Adequate (Fair) Attention and Concentration: Adequate Mood: Other (Mild oppositionality, generally appropriate.) Affect: Appropriate Thought Process & Associations: Intact, Logical, Goal directed, Linear Thought Content: Appropriate Hallucination Type: None Delusion Type: None Suicidal Ideation: No Suicidal Plan: No Suicidal Intention: No Homicidal Ideation: No Homicidal Plan: No Homicidal Intention: No Mental Status Exam Remarks Insight and judgment are fair at best Discharge/Advance Care Plan Health Problems: (1) Bipolar disorder Goals to promote your health * To prevent worsening of your condition and complications * To maintain your health at the optimal level Directions to meet your goals Take your medications as prescribed Follow your dietary instruction Follow activity as directed Keep your appointments as scheduled Take your immunizations and boosters as scheduled If your symptoms worsen call your PCP, if no PCP go to Urgent Care Center or Emergency Room For 14/05 questions related to your inpatient stay or results of tests pending at discharge, please contact Dr. Luis Fernando Diaz at Smoking is Dangerous to Your Health. Avoid second hand smoking Luis Fernando Diaz MD February 26, 2018 11:46
== END 2018-02-26 14:40 | disposition home health service (06) | DRG 885 ==
LOC: NEPD 19:01 → NEDA 02-10 15:27 → H260 02-10 20:47 → H250 02-14 13:00 → H260 02-22 12:00
PROVIDERS: ADMIT Psychiatry & Neurology Psychiatry; ATTEND Psychiatry & Neurology Psychiatry
DX: F31.64 Bipolar disorder, current episode mixed, severe, with psychotic features (principal); I10 Essential (primary) hypertension; E78.5 Hyperlipidemia, unspecified; R68.2 Dry mouth, unspecified; Z79.899 Other long term (current) drug therapy; Z79.02 Long term (current) use of antithrombotics/antiplatelets
CPT/HCPCS: 80048; 80053; 80061; 80178; 80307; 81001; 83036; 84443; 85025; 93005; 99285; J1200; J3486; P9612

== ENCOUNTER 2018-10-24 00:03 | Inpatient (IN) ==
[2018-10-24] MEDS ORDERED: Acetaminophen 325 MG Tablet PO PRN (02:07)
[2018-10-24] MEDS ORDERED: Aluminum/Magnesium/Simethacone Susp 30 ML UDC PO PRN (02:07)
--- NOTE | 2018-10-24 09:20 | P.CONIM ---
History of Present Illness Reason for Consult: Follow up medical condition (UTI) Primary Care Provider: Drea Marshall History of Present Illness: This is a 73-year-old female patient with past medical history which includes hypertension, hyperlipidemia, CVA on Plavix and bipolar disorder. Patient is currently inpatient psychiatric unit we have been consulted to assist with, "follow-up of medical condition (UTI)." Patient offers no complaints at this time. Patient denies dysuria, increased urinary frequency, fevers, chills, shortness of breath or chest pain. PMH: hypertension, hyperlipidemia, CVA on Plavix and bipolar disorder PSxH: Colonoscopy, laparoscopic urethral suspension for stress incontinence, tonsillectomy, total knee arthroplasty Family medical history reviewed and noncontributory Social history: Currently Denies EtOH use [facility] Social History Social History Substance History: No History of Abuse Smoking Status: Former smoker Tobacco Type: Cigarettes How Often Do You Have a Drink Containing Alcohol: Monthly or less Medications and Allergies Allergies Allergy/AdvReac Type Severity Reaction Status Date / Time No Known Allergies Allergy Unverified 02/09/18 20:47 Home Medications Medication Instructions Recorded Confirmed Type atorvastatin 10 mg PO QPM 10/24/18 10/24/18 History clopidogrel [Plavix] 75 mg PO DAILY 10/24/18 10/24/18 History propranolol 20 mg PO DAILY 10/24/18 10/24/18 History Active Medications: Active Medications Acetaminophen (Tylenol) 650 mg PO Q4H PRN PRN Reason: Pain 1-5 or Temp >101F Al Hydrox/Mg Hydrox/Simethicone (Mag-Al Plus Susp Liq) 30 ml PO Q6H PRN PRN Reason: DYSPEPSIA Al Hydroxide/Mg Hydroxide (Milk Of Magnesia Liq) 30 ml PO Q12H PRN PRN Reason: Mild Constipation Diphenhydramine HCl (Benadryl) 50 mg PO Q6H PRN PRN Reason: For mild anxiety and/or EPS Diphenhydramine HCl (Benadryl Inj) 50 mg IM Q6H PRN PRN Reason: For mild anxiety and/or EPS Physical Exam Vital signs: Last Vital Signs Temp 98.8 F 10/24/18 05:49 Pulse 81 10/24/18 05:49 Resp 16 10/24/18 05:49 BP 131/63 10/24/18 05:49 Pulse Ox 96 10/24/18 05:49 Narrative: GENERAL: This is a well-nourished, well-developed patient, in no apparent distress. CARDIOVASCULAR: Regular rate and rhythm RESPIRATORY: Clear to auscultation. Breath sounds equal bilaterally. No wheezes , rales, or rhonchi. GASTROINTESTINAL: Abdomen soft, non-tender, nondistended. Normal active bowel sounds MUSCULOSKELETAL: Extremities without clubbing, cyanosis, or edema. NEURO: Moves all ext x4 Results Labs CBC & Chem 7: 10/24/18 10:07 10/24/18 10:07 Assessment and Plan Plan This is a 73-year-old female patient with past medical history which includes hypertension, hyperlipidemia, CVA on Plavix and bipolar disorder. Patient is currently inpatient psychiatric unit we have been consulted to assist with, "follow-up of medical condition (UTI)." Bipolar disorder Management per psychiatric team Consulted for follow-up medical conditions possible UTI CBC, BMP and UA with C&S if indicated ordered and pending patient denies dysuria, increased urinary frequency, fevers or chills no elevation of WBC, no fever await urine culture results Hypertension Essential tremor continue patient's home propranolol 20 mg 1 tablet daily Hyperlipidemia Continue patient's home atorvastatin 10 mg daily History of CVA Continue patient's home Plavix 75 mg daily
--- NOTE | 2018-10-24 09:46 | P.HPPSY ---
Provisional Diagnosis Admission Date: October 24, 2018 01:20 [place] I.: Bipolar disorder mixed episode mixed severe with psychotic features Competence Certification of Person's Competence To Provide Express and Informed Consent I have personally examined Cristina Perez, a person being served at [facility] on, October 24, 2018 0928. Express and informed consent means consent voluntarily given in writing, by a competent person, after sufficient explanation and disclosure of the subject matter involved to enable the person to make a knowing and willful decision without any element of force, fraud, deceit, duress, or other form of constraint or coercion. This person is 18 years of age or older, is not now known to be incompetent to consent to treatment with a guardian advocate, and does not have a health care surrogate or proxy currently making medical treatment decisions. I have found this person to be one of the following: [] Competent to provide express and informed consent, as defined above, for voluntary admission to this facility and is competent to provide express and informed consent for treatment. He/she has the consistent capacity to make well reasoned, willful, and knowing decisions concerning his or her medical or mental health treatment. The person fully and consistently understands the purpose of the admission for examination/placement and is fully capable of personally exercising all rights assured [place] [] Incompetent to provide express and informed consent to voluntary admission, and this is incompetent to provide express and informed consent to treatment. The person must be transferred to involuntary status and a petition for a guardian advocate filed with the Circuit Court. [xxxxx] Refusing to provide express and informed consent to voluntary admission but is competent to provide express and informed consent for treatment. The person must be discharged or transferred to involuntary status. Form shall be completed within 24 hours of a person's arrival at the receiving facility and filed in the clinical record of each person: 1. Admitted on a voluntary basis 2. Permitted to provide express and informed consent to his/her own treatment 3. Allowed to transfer from involuntary to voluntary status 4. Prior to permitting a person to consent to his or her own treatment after having been previously found incompetent to consent to treatment. History of Present Illness Capacity: Lacks capacity (Patient has capacity to sign for medication and treatment, patient lacks capacity to sign for admission) History of Present Illness: Patient is a 73-year-old white female comes to the ED at [facility] under [place] act dated 10/23/2018 at 10 AM signed by an illegible signature that document reviewed stating patient presents 3 times to ED complains of having chest pain and having no heart today. Patient locked herself in bathroom saying police to get out. Patient unable to make clear decisions making today patient seen screen at that facility urine toxicology negative blood alcohol level negative lithium level of 0.7. Liver just patient has been seen here in the past for similar episodes. At the present time patient sitting quietly in her room on 2500 nurse Neli present throughout session patient is an alert oriented white female appears her stated age somewhat disheveled in appearance. Stating she has no heart when asked why she feels this way she is unable to give an answer. Though it has been shown by multiple workups that she does have a heart. She is unable to accept that. She does acknowledge intermittent but persistent auditory hallucinations of a somewhat threatening nature. There is marked thought blocking noted also. She does denies suicidality. She does deny alcohol or drug use. She acknowledges multiple psychiatric hospitalizations in the past. She states she sees a psychiatrist now through [facility]. There is been prescribed lithium and Geodon. She states she has been compliant with her medication. I question the veracity of that though her lithium level is within therapeutic range. At this time patient does not meet criteria for further inpatient psychiatric hospitalization of the [place] act I will do first opinion request second opinion. Therefore she does have capacity to sign for medication. We will continue her lithium at 450 mg twice daily and add the Geodon 60 mg twice daily after meals and Cogentin 0.5 mg twice daily we will recheck her lithium level in a few days. Hopefully this be fairly short stay and can return her to her apartment. She states she does have friends placed Gina torres with. She denies having any pets in the house she states she is been once is no longer she has an adult son who lives out of state that she states she has a good relationship with - Inpatient Certification I certify that the inpatient services were ordered in accordance with Medicare regulations governing the order. This includes certification that hospital inpatient services are reasonable and necessary and in the case of services not specified as inpatient-only under 42 CFR 419.22(n), that they are appropriately provided as inpatient services in accordance to with the 2-midnight benchmark under 43 CFR 412.3(e) I certify that inpatient psychiatric hospital services are medically necessary. Evaluation and treatment and/or diagnostic testing are expected to improve the patient's condition. The patient needs on a daily basis, active treatment furnished directly by or requiring the supervision of inpatient psychiatric facility personnel. Estimated Total Length of Stay (Days): 5 Plans for Post Hospital Care: Home [facility] - History History Provided By: Patient - Medical / Surgical Hx Neg / Unobtainable Surgical History: Unable to Obtain - Social History I have reviewed the patient's Social History: Yes - Tobacco History Smoking Status: Former smoker Tobacco Type: Cigarettes - Alcohol History How Often Do You Have a Drink Containing Alcohol: Monthly or less - Substance Use History Substance History: No History of Abuse Quality Measures - Psychiatric History Psychological trauma history: Patient denies Violence risk to others in the last 6 months: Low Violence risk to self in the last 6 months: Patient denies at this time - Substance Abuse History Drug or alcohol use in the past 12 months: Patient denies - Patient Strengths Patient's strengths (minimum of 2): Patient verbal able [facility] Medications and Allergies Active Medications: Active Medications Acetaminophen (Tylenol) 650 mg PO Q4H PRN PRN Reason: Pain 1-5 or Temp >101F Al Hydrox/Mg Hydrox/Simethicone (Mag-Al Plus Susp Liq) 30 ml PO Q6H PRN PRN Reason: DYSPEPSIA Al Hydroxide/Mg Hydroxide (Milk Of Magnesia Liq) 30 ml PO Q12H PRN PRN Reason: Mild Constipation Atorvastatin Calcium (Lipitor) 10 mg PO QPM [facility] Benztropine Mesylate (Cogentin) 0.5 mg PO BID [facility] Clopidogrel Bisulfate (Plavix) 75 mg PO DAILY [facility] Diphenhydramine HCl (Benadryl) 50 mg PO Q6H PRN PRN Reason: For mild anxiety and/or EPS Hydroxyzine HCl (Atarax) 50 mg PO Q6H PRN PRN Reason: ANXIETY [place] Carbonate (Eskalith Sr) 450 mg PO BIDPC [facility] Propranolol HCl (Inderal) 20 mg PO DAILY [place] Ziprasidone (Geodon) 60 mg PO BIDPC [facility] Allergies Allergy/AdvReac Type Severity Reaction Status Date / Time No Known Allergies Allergy Unverified 02/09/18 20:47 Home Medications Medication Instructions Recorded Confirmed Type atorvastatin 10 mg PO QPM 10/24/18 10/24/18 History clopidogrel [Plavix] 75 mg PO DAILY 10/24/18 10/24/18 History propranolol 20 mg PO DAILY 10/24/18 10/24/18 History Exam Vital signs: Vital Signs 10/24/18 02:03 10/24/18 05:49 Temperature 99.1 F 98.8 F Pulse Rate 93 H 81 Respiratory Rate 18 16 Blood Pressure 159/97 H 131/63 Pulse Oximetry 97 96 Intake & Output 10/23/18 10/24/18 10/24/18 18:59 06:59 18:59 Intake Total 240 / 240 360 / 360 Balance 240 / 240 360 / 360 Weight 77.6 kg Intake: Oral 240 / 240 360 / 360 Other: Weight On Admission 77.6 kg Narrative: Patient seen sitting in her room patient in no acute distress, patient no respiratory distress, no complaints of chest pain or abdominal pain. Though she does hold her chest and say "do I have a heart". Patient moving all 4 extremities without difficulty Mental Status Examination Appearance: Appropriate Consciousness: Alert Orientation: Person, Place, Date/Time, Situation Motor Activity: Normal gait Speech: Unremarkable Language: Adequate Fund of Knowledge: Adequate (Fair) Attention and Concentration: Adequate (Fair) Memory: Unremarkable (Fair) Mood: Other (Euthymic to somewhat intense) Affect: Other (Good range and increased intensity) Thought Process & Associations: Intact Thought Content: Bizarre thinking Delusion Type: Paranoid Suicidal Ideation: No Suicidal Plan: No Suicidal Intention: No Homicidal Ideation: No Homicidal Plan: No Homicidal Intention: No Insight: Poor Judgment: Poor Assessment and Plan - Assessment (1) Bipolar I disorder, most recent episode mixed, severe with psychotic features Code(s): F31.64 - Bipolar disorder, current episode mixed, severe, with psychotic features Status: Acute - Plan Plan: Estimated LOS: [] days Patient does meet [place] criteria will do first opinion request second opinion. "She has capacity to sign for medications and treatment. We will restart her medications of lithium Geodon and Cogentin along with medical medications as ordered by hospitalist. Hopefully to be fairly short stay and returned to the community and follow-up with a community psychiatrist through [facility] Justification for Continued Inpatient Stay: At this time patient with decompensated placed on a lower level of care Discharge Planning: Hopefully return home to her apartment Request Healthcare Surrogate/Guardian Advocate?: No
[2018-10-24 10:21] LABS: Baso # (Auto) 0.1 th/mm3 (0.0-0.2); Baso % (Auto) 0.8 % (0.0-2.0); Eos # (Auto) 0.2 th/mm3 (0.0-0.4); Eos % (Auto) 2.5 % (0.0-4.0); Hematocrit 40.7 % (35.0-46.0); Hemoglobin 13.6 gm/dL (11.6-15.3); Lymph # (Auto) 1.2 th/mm3 (1.0-4.8); Lymph % (Auto) 18.1 % (9.0-44.0); Mean Corpuscular HGB Conc 33.4 % (32.0-36.0); Mean Corpuscular Hemoglobin 32.9 pg (27.0-34.0); Mean Corpuscular Volume 98.4 fL (80.0-100.0); Mean Platelet Volume 6.9 fL (7.0-11.0); Mono # (Auto) 0.6 th/mm3 (0.0-0.9); Mono % (Auto) 9.6 % (0.0-8.0); Neut # (Auto) 4.6 th/mm3 (1.8-7.7); Platelet Count 295 th/mm3 (150-450); Red Blood Count 4.13 mil/mm3 (4.00-5.30); Red Cell Distribution Width 13.2 % (11.6-17.2); White Blood Count 6.7 th/mm3 (4.0-11.0)
[2018-10-24 10:43] LABS: Calcium 9.1 mg/dL (8.5-10.1); Carbon Dioxide 27.1 meq/L (21.0-32.0); Potassium 3.9 meq/L (3.5-5.1)
[2018-10-24 12:08] LABS: Bacteria,Urine Rare /hpf; Bilirubin,Urine Negative (Negative); Clarity,Urine Clear (Clear); Color,Urine Yellow (Yellw/Straw); Glucose,Urine (UA) Negative (Negative); Leukocyte Esterase,Urine Large (Negative); Nitrite,Urine Negative (Negative); Specific Gravity,Urine 1.008 (1.002-1.035); Squamous Epithelial Cell,Urine <1 /hpf (0-5)
[2018-10-25 08:31] LABS: Calcium 9.4 mg/dL (8.5-10.1); Carbon Dioxide 26.3 meq/L (21.0-32.0)
[2018-10-25 08:34] LABS: Chol/HDL Ratio 2.02 Ratio; HDL Cholesterol 81.9 mg/dL (40.0-60.0)
--- NOTE | 2018-10-25 12:31 | P.PNPSY ---
Subjective Chief Complaint: "I dont have a heart" Remarks: The patient was seen for the purpose of providing a second opinion to the [place] order. Chart reviewed to include emergency department paperwork and the attending's history and physical. Patient discussed with nursing staff; we reviewed the patient's mood, thoughts, and behaviors since arrival to the unit. Patient was seen sitting in the day room after lunch. She was cooperative with interview. She continues to endorse a delusion that she has no heart. She was asked to explain how she managed to have her blood flow maintained and she says she does not know that what frightens her. She was asked if she feels safe here in the hospital and she said "I do not know". She does admit to some paranoia that some people may be trying to harm her but she is willing to cooperate with care. Mental Status Examination Appearance: Appropriate Consciousness: Alert Orientation: Person, Place, Date/Time, Situation Motor Activity: Normal gait Speech: Unremarkable Language: Adequate Fund of Knowledge: Adequate (Fair) Attention and Concentration: Adequate (Fair) Memory: Unremarkable (Fair) Mood: Other (Euthymic to somewhat intense) Affect: Other (Good range and increased intensity) Thought Process & Associations: Intact Thought Content: Bizarre thinking Delusion Type: Paranoid Suicidal Ideation: No Suicidal Plan: No Suicidal Intention: No Homicidal Ideation: No Homicidal Plan: No Homicidal Intention: No Insight: Poor Judgment: Poor Assessment and Plan - Assessment (1) Bipolar I disorder, most recent episode mixed, severe with psychotic features Code(s): F31.64 - Bipolar disorder, current episode mixed, severe, with psychotic features Status: Acute - Plan Plan: I concur with the first opinion that the patient lacks capacity to understand her need for inpatient psychiatric hospitalization but maintains minimal capacity for making decisions about her medical care. I believe she is a substantial risk of self-harm through self neglect due to the severity of her thought disorder. Second opinion filled out and left on chart. Justification for Continued Inpatient Stay: Patient remains an elevated risk for self-harm by self neglect and will require further inpatient stabilization and preparation of a safe discharge plan. Moving patient to a less restrictive environment at this time may result in decompensation. Request Healthcare Surrogate/Guardian Advocate?: No
[2018-10-25 13:27] LABS: Hemoglobin A1c 5.3 % (4.3-6.0)
--- NOTE | 2018-10-25 15:14 | P.PNPSY ---
Subjective Chief Complaint: "I dont have a heart" Remarks: Patient is seen today in day room with nurse jordyn, chart reviewed, patient compliant medication. Where patient quite vigilant and somewhat suspicious about the medications she needs marked reassurance and explanation of the medications before she takes them. Otherwise she has no significant behavioral problems. Continue treatment she still denies having a heart Review of Systems All other systems reviewed negative except as stated in HPI Mental Status Examination Appearance: Appropriate Consciousness: Alert Orientation: Person, Place, Date/Time, Situation Motor Activity: Normal gait Speech: Unremarkable Language: Adequate Fund of Knowledge: Adequate (Fair) Attention and Concentration: Adequate (Fair) Memory: Unremarkable (Fair) Mood: Other (Euthymic to somewhat intense) Affect: Other (Good range and increased intensity) Thought Process & Associations: Intact Thought Content: Bizarre thinking Delusion Type: Paranoid Suicidal Ideation: No Suicidal Plan: No Suicidal Intention: No Homicidal Ideation: No Homicidal Plan: No Homicidal Intention: No Insight: Poor Judgment: Poor Assessment and Plan - Assessment (1) Bipolar I disorder, most recent episode mixed, severe with psychotic features Code(s): F31.64 - Bipolar disorder, current episode mixed, severe, with psychotic features Status: Acute - Plan Plan: Patient remains delusional somewhat psychotic vigilant suspicious though compliant with encouragement Justification for Continued Inpatient Stay: At this time patient with decompensated placed on a lower level of care Discharge Planning: To be determined Request Healthcare Surrogate/Guardian Advocate?: No
--- NOTE | 2018-10-26 15:27 | P.PNPSY ---
Subjective Chief Complaint: "I dont have a heart" Remarks: Patient was seen and case discussed with nursing. Affect is quite anxious and patient remains disorganized and confused concerning her stay. She continues to have bizarre delusions that she does not have a heart. She has been oppositional with medication but after psychoeducation agrees to take them this evening. Largely keeps to herself Review of Systems All other systems reviewed negative except as stated in HPI Mental Status Examination Appearance: Appropriate Consciousness: Alert Orientation: Person, Place, Date/Time, Situation Motor Activity: Normal gait Speech: Unremarkable Language: Adequate Fund of Knowledge: Adequate (Fair) Attention and Concentration: Adequate (Fair) Memory: Unremarkable (Fair) Mood: Other (Euthymic to somewhat intense) Affect: Anxious Thought Process & Associations: Intact Thought Content: Bizarre thinking, Derealization Delusion Type: Paranoid Suicidal Ideation: No Suicidal Plan: No Suicidal Intention: No Homicidal Ideation: No Homicidal Plan: No Homicidal Intention: No Insight: Poor Judgment: Poor Assessment and Plan - Assessment (1) Bipolar I disorder, most recent episode mixed, severe with psychotic features Code(s): F31.64 - Bipolar disorder, current episode mixed, severe, with psychotic features Status: Acute - Plan Plan: Continue current treatment plan Justification for Continued Inpatient Stay: Patient would decompensate in a less restrictive setting Request Healthcare Surrogate/Guardian Advocate?: No
--- NOTE | 2018-10-27 13:22 | P.PNPSY ---
Subjective Chief Complaint: "I dont have a heart" Remarks: Reviewed electronic medical records and discussed case with staff. Follow-up was conducted in the day room with MARY Cuevas present. Initially her nurse reported that she refused her medications however, later she stated she was ready for them. She did continue to refuse her Geodon. She states that she does not like the way it tastes. During the follow-up she reports that she feels "very fine". States that she slept "fine". Reports her appetite sometimes good but she does not particularly care for the food. She states that her mood is "okay to the same mood all the time". She goes on to state that she would like me to talk to her doctors "from all the time". She says that then we will better know how to help her. Her affect is rather oppositional and argumentative. Mental Status Examination Appearance: Appropriate Consciousness: Alert Orientation: Person, Place, Date/Time, Situation Motor Activity: Normal gait Speech: Unremarkable Language: Adequate Fund of Knowledge: Adequate (Fair) Attention and Concentration: Adequate (Fair) Memory: Unremarkable (Fair) Mood: Other (Euthymic to somewhat intense) Affect: Anxious Thought Process & Associations: Intact Thought Content: Bizarre thinking, Derealization Delusion Type: Paranoid Suicidal Ideation: No Suicidal Plan: No Suicidal Intention: No Homicidal Ideation: No Homicidal Plan: No Homicidal Intention: No Insight: Poor Judgment: Poor Assessment and Plan - Assessment (1) Bipolar I disorder, most recent episode mixed, severe with psychotic features Code(s): F31.64 - Bipolar disorder, current episode mixed, severe, with psychotic features Status: Acute - Plan Plan: Patient will be reevaluated by the attending psychiatrist. Continue with current treatment plan. Justification for Continued Inpatient Stay: Moving this patient to a less restrictive environment would likely result in decompensation. Request Healthcare Surrogate/Guardian Advocate?: No
--- NOTE | 2018-10-28 10:58 | P.PNPSY ---
Subjective Chief Complaint: "I dont have a heart" Remarks: Patient is seen in her room with nurse Kaylee, chart reviewed, patient trying mixed compliance with medication refusing to take oral Geodon. Saying she does not like it. Patient remains somewhat delusional manic with pressured speech. Increasingly angry during the session. At this time I question whether the patient does have capacity to make decisions concerning her medications will observe over the next 24 hours Review of Systems All other systems reviewed negative except as stated in HPI Mental Status Examination Appearance: Appropriate Consciousness: Alert Orientation: Person, Place, Date/Time, Situation Motor Activity: Normal gait Speech: Unremarkable Language: Adequate Fund of Knowledge: Adequate (Fair) Attention and Concentration: Adequate (Fair) Memory: Unremarkable (Fair) Mood: Oppositional (Today), Irritable (Irritable today), Other (Euthymic to somewhat intense) Affect: Other (Slight increased range and intensity) Thought Process & Associations: Intact, Disorganized (Slightly) Thought Content: Bizarre thinking, Derealization Delusion Type: Paranoid Suicidal Ideation: No Suicidal Plan: No Suicidal Intention: No Homicidal Ideation: No Homicidal Plan: No Homicidal Intention: No Insight: Poor Judgment: Poor Assessment and Plan - Assessment (1) Bipolar I disorder, most recent episode mixed, severe with psychotic features Code(s): F31.64 - Bipolar disorder, current episode mixed, severe, with psychotic features Status: Acute - Plan Plan: Patient is showing some increased signs of psychosis now refusing to take oral Geodon because she does not like the taste of it. Will observe for 24 hours to see if she can be encouraged to cooperate with her oral medication otherwise we may need to adjust her competency to get permission to treat her with an alternative method for the Geodon Justification for Continued Inpatient Stay: At this time patient with decompensated placed on a lower level of care Discharge Planning: To be determined Request Healthcare Surrogate/Guardian Advocate?: No
--- NOTE | 2018-10-29 13:58 | P.PNPSY ---
Subjective Chief Complaint: "I dont have a heart" Remarks: Patient seen in her room with nurse Kaylee, chart reviewed, patient trying mixed compliance with medication. She is not initial some control over the dosage and timing. Patient states she is only taking the lithium once a day. The thought she wishes to take it. I explained we will consolidate the dose to 1 time a day she is willing to do that thus the lithium will be changed to 900 mg in the morning. I also explained the reason for the twice daily dose of Geodon she says she is willing to do that however I will also order Geodon IM if she refuses it orally she does acknowledge continued auditory hallucinations of the last time she admits it was last night and was threatening Review of Systems All other systems reviewed negative except as stated in HPI Mental Status Examination Appearance: Appropriate Consciousness: Alert Orientation: Person, Place, Date/Time, Situation Motor Activity: Normal gait Speech: Unremarkable Language: Adequate Fund of Knowledge: Adequate (Fair) Attention and Concentration: Adequate (Fair) Memory: Unremarkable (Fair) Mood: Oppositional (Today), Irritable (Irritable today), Other (Euthymic to somewhat intense) Affect: Other (Slight increased range and intensity) Thought Process & Associations: Intact, Disorganized (Slightly) Thought Content: Bizarre thinking, Hallucinations, Derealization Hallucination Type: Auditory Delusion Type: Paranoid Suicidal Ideation: No Suicidal Plan: No Suicidal Intention: No Homicidal Ideation: No Homicidal Plan: No Homicidal Intention: No Insight: Poor Judgment: Poor Assessment and Plan - Assessment (1) Bipolar I disorder, most recent episode mixed, severe with psychotic features Code(s): F31.64 - Bipolar disorder, current episode mixed, severe, with psychotic features Status: Acute - Plan Plan: Patient's phoebe softening somewhat but remains psychotic and paranoid and vigilant see medication adjustments above Justification for Continued Inpatient Stay: At this time patient with decompensated placed in a lower level of care Discharge Planning: To be determined Request Healthcare Surrogate/Guardian Advocate?: No
[2018-10-30 05:11] VITALS: O2SAT 97
--- NOTE | 2018-10-30 14:02 | P.TTN ---
- Patient Problems Problems: 1. Discharge planning 2. Medication compliance 3. Knowledge deficit 4. Lack of coping skills - Progress Toward Goals Provider Present: Dr. Alvarez Venegas Provider Input: 10/30/18 Patient information was placed in worklist Treatment Team due to counselor not having access to this Treatment Team documentation. Patient's nurse reports patient non compliant with medication, easily agitated. Psychiatric Counselors Present: Erica Rios [facility] Psychiatric Therapist Input: 10/30/18 Patient presents difiant, oppostional, not wanting to take her medication. Patient will go to [place] [facility] tomorrow Group Spec/RT/OT/BRYANT Present: LASHAE Rios Group Spec/RT/OT/BRYANT Input: 10/30/18. Patient does not attend groups - Documentation Teaching Recipient: Patient
--- NOTE | 2018-10-30 16:11 | P.PNPSY ---
Subjective Chief Complaint: "I dont have a heart" Remarks: Patient seen for follow-up, chart reviewed, patient discussed with nursing staff ; we reviewed the patient's mood, thoughts, and behaviors from overnight and this morning. Nursing reports that the patient slept 8 hours overnight. She is minimally cooperative with meds and needs recurrent coaxing. Patient was seen at bedside after breakfast. She continues to express a delusional belief that she has no heart and she is frustrated that she cannot get the proper medical workup to prove that she is right. She is alert and oriented to person place and time but complains of not knowing why she is in a psychiatric unit. The patient does not recall seeing a psychiatrist prior to the day including today's provider who saw her on admission. The patient accepts recommendation that she be continued on her treatment for bipolar disorder with lithium and for her psychosis with Geodon. The patient's affect was very labile as she would laugh inappropriately throughout the interview. Mental Status Examination Appearance: Appropriate Consciousness: Alert Orientation: Person, Place, Date/Time Motor Activity: Normal gait Speech: Unremarkable Language: Adequate Fund of Knowledge: Adequate (Fair) Attention and Concentration: Adequate (Fair) Memory: Unremarkable (Fair) Mood: Oppositional (Today), Irritable (Irritable today), Other (Euthymic to somewhat intense) Affect: Labile (Laughing inappropriately) Thought Process & Associations: Intact, Disorganized (Slightly) Thought Content: Bizarre thinking, Hallucinations, Derealization Hallucination Type: Auditory Delusion Type: Paranoid Suicidal Ideation: No Suicidal Plan: No Suicidal Intention: No Homicidal Ideation: No Homicidal Plan: No Homicidal Intention: No Insight: Poor Judgment: Poor Assessment and Plan - Assessment (1) Bipolar I disorder, most recent episode mixed, severe with psychotic features Code(s): F31.64 - Bipolar disorder, current episode mixed, severe, with psychotic features Status: Acute - Plan Plan: 10/30/2018: Unsatisfactory response to treatment; the patient's mood has improved and her affect has definitely increased in its range but it is more labile she continues to express delusional beliefs and a lack of insight into her psychiatric condition. Continue inpatient psychiatric treatment and observation, involuntary status. Continue lithium 900 mg/day for treatment of bipolar disorder. Continue Geodon 60 mg twice a day for treatment of psychosis. Continue Cogentin 0.5 mg twice a day for treatment of EPS. Justification for Continued Inpatient Stay: Patient remains an elevated risk for self-harm by self neglect and will require further inpatient stabilization and preparation of a safe discharge plan. Moving patient to a less restrictive environment at this time may result in decompensation. Request Healthcare Surrogate/Guardian Advocate?: No
[2018-10-31 05:48] VITALS: BP 143/68; PULSE 60; RESP 16; TEMP 97.5
--- NOTE | 2018-10-31 14:35 | P.DSPSY ---
Psychiatry Discharge Summary Inpatient Psychiatric care?: Yes Advance Directives: No Mental Health Advance Directive: No Health Care Proxy: No - Admission Admission Date: October 24, 2018 01:20 - Admission Diagnosis (1) Bipolar I disorder, most recent episode mixed, severe with psychotic features Code(s): F31.64 - Bipolar disorder, current episode mixed, severe, with psychotic features Brief History: Patient is a 73-year-old white female comes to the ED at [facility] under [place] [facility] dated 10/23/2018 at 10 AM signed by an illegible signature that document reviewed stating patient presents 3 times to ED complains of having chest pain and having no heart today. Patient locked herself in bathroom saying police to get out. Patient unable to make clear decisions making today patient seen screen at that facility urine toxicology negative blood alcohol level negative lithium level of 0.7. Liver just patient has been seen here in the past for similar episodes. At the present time patient sitting quietly in her room on 2500 nurse Neli present throughout session patient is an alert oriented white female appears her stated age somewhat disheveled in appearance. Stating she has no heart when asked why she feels this way she is unable to give an answer. Though it has been shown by multiple workups that she does have a heart. She is unable to accept that. She does acknowledge intermittent but persistent auditory hallucinations of a somewhat threatening nature. There is marked thought blocking noted also. She does denies suicidality. She does deny alcohol or drug use. She acknowledges multiple psychiatric hospitalizations in the past. She states she sees a psychiatrist now through [facility]. There is been prescribed lithium and Geodon. She states she has been compliant with her medication. I question the veracity of that though her lithium level is within therapeutic range. At this time patient does not meet criteria for further inpatient psychiatric hospitalization of the [place] I will do first opinion request second opinion. Therefore she does have capacity to sign for medication. We will continue her lithium at 450 mg twice daily and add the Geodon 60 mg twice daily after meals and Cogentin 0.5 mg twice daily we will recheck her lithium level in a few days. Hopefully this be fairly short stay and can return her to her apartment. She states she does have friends placed Gina bingo with. She denies having any pets in the house she states she is been once is no longer she has an adult son who lives out of state that she states she has a good relationship with Tobacco Use In Past 30 Days: No How Often Do You Have a Drink Containing Alcohol: Monthly or less Hospital Course: Hospital course: Patient was admitted to a locked, inpatient psychiatric unit. Appropriate precautions were in place throughout patient's hospital stay. Patient was seen and examined on the unit by psychiatry and also visited by counselor. Psychotropic medications were adjusted based on clinical presentation and tolerability; the patient complained of difficulty remembering the twice daily dose of lithium therefore it was changed to once a day. The patient was repeatedly counseled on the need for treatment with antipsychotic due to her delusional belief that she has no heart but she refused to accept any other psychotropics. There was improved thought processes in response to inpatient treatment; she was more alert and goal oriented but she maintained her fixed false belief about not having a heart and her refusal to accept antipsychotic treatment was done without rational explanation. The patient is at substantial risk of worsening mood and psychosis due to her lack of adherence with treatment but she requested discharge home today in [place] [address] and the Clinical Partner supported her request. Psychiatric follow-up as arranged by counselor. Patient is also to follow up with primary care. I have counseled patient to return to the psychiatric emergency room for any concerning symptoms as part of a general safety plan. Discharge medications include lithium extended release tablets 450 mg take 2 by mouth at bedtime for treatment of bipolar disorder #60 refill 0. - Discharge Discharge Date: 10/31/18 Discharge Disposition: Home - Discharge Time > 30 minutes Mental Status Examination Appearance: Appropriate Consciousness: Alert Orientation: Person, Place, Date/Time Motor Activity: Normal gait Speech: Unremarkable Language: Adequate Fund of Knowledge: Adequate (Fair) Attention and Concentration: Adequate (Fair) Memory: Unremarkable (Fair) Mood: Oppositional (Today), Irritable (Irritable today), Other (Euthymic to somewhat intense) Affect: Labile (Laughing inappropriately) Thought Process & Associations: Intact, Disorganized (Slightly) Thought Content: Bizarre thinking, Derealization Delusion Type: Paranoid, Somatic Suicidal Ideation: No Suicidal Plan: No Suicidal Intention: No Homicidal Ideation: No Homicidal Plan: No Homicidal Intention: No Insight: Poor Judgment: Impulsive Discharge/Advance Care Plan - Results Vital Signs: Last Vital Signs Temp 97.5 F L 10/31/18 05:46 Pulse 60 10/31/18 05:46 Resp 16 10/31/18 05:46 BP 143/68 H 10/31/18 05:46 Pulse Ox 97 10/31/18 05:46 Lab Results: Laboratory Results Hemoglobin A1c 5.3 % (4.3-6.0) 10/25/18 07:49 Triglycerides 83 mg/dL (42-150) 10/25/18 07:49 Cholesterol 166 mg/dL (120-200) 10/25/18 07:49 LDL Cholesterol, Calc 68 mg/dL (0-99) 10/25/18 07:49 HDL Cholesterol 81.9 mg/dL (40.0-60.0) H 10/25/18 07:49 Urine Culture Comments Cath-cult indicated 10/24/18 11:26 [place] 0.5 meq/L (0.5-1.5) 10/25/18 07:49 Summary of Procedures: None ordered Pending Results: None - Medications Number of antipsychotic medications at discharge: 0 - Discharge Care Plan Goals to Promote Your Health: * To prevent worsening of your condition and complications * To maintain your health at the optimal level Directions to Meet Your Goals: Take your medications as prescribed Follow your dietary instruction Follow activity as directed Keep your appointments as scheduled Take your immunizations and boosters as scheduled If your symptoms worsen call your PCP, if no PCP go to Urgent Care Center or Emergency Room For 14/05 questions related to your inpatient stay or results of tests pending at discharge, please contact Dr. Dajuan Fontanez MD at Smoking is Dangerous to Your Health. Avoid second hand smoking
== END 2018-10-31 14:15 | disposition home or self-care (01) | DRG 885 ==
LOC: H250 01:20
PROVIDERS: ADMIT Psychiatry & Neurology Psychiatry; ATTEND Psychiatry & Neurology Psychiatry
CPT/HCPCS: J1200

== ENCOUNTER 2018-12-12 10:40 | Inpatient (IN) ==
--- NOTE | 2018-12-12 12:02 | ED ---
HPI General Chief Complaint: Psychiatric Symptoms Stated Complaint: Psych Eval Time Seen by Provider: 12/12/18 11:53 History of Present Illness HPI Narrative: This patient presents with a clinical worker and her friend. Apparently the friend had called the primary physician because she was concerned that the patient was having paranoid thoughts and hearing voices. She has history of bipolar disorder and lives alone. 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 Patient is agreeable and does not need [place] act. She denies any acute pain or injury. She apparently had a fall at some point in the last few days but denies any pain or injury. She takes lithium for bipolar. Symptom severity is moderate. Duration is 3 days. No alleviating factors. No exacerbating factors. Related Data Home Medications Medication Instructions Recorded Confirmed lithium carbonate 450 mg PO BID 12/12/18 12/12/18 Allergies Allergy/AdvReac Type Severity Reaction Status Date / Time No Known Allergies Allergy Unverified 02/09/18 20:47 Review of Systems ROS: all other systems reviewed are negative [facility] Medical History Medical History Psychiatric disorder (Acute) Surgical History Surgical History History of total right knee replacement (Acute) Social History Social History Substance History: No History of Abuse Second Hand Smoke Exposure: No Smoking Status: Never smoker Tobacco Type: Cigarettes How Often Do You Have a Drink Containing Alcohol: Never Recent Travel in [facility] within the Last 8 Weeks: No Recent Out of Country Travel within the Last 8 Weeks: No Immunization History Tetanus Immunization: Unsure Exam Narrative Exam Narrative: GENERAL: Well-nourished, well-developed patient in no apparent distress. SKIN: Focused skin assessment reveals no rash and nodules. Skin is Warm and dry. HEAD: Atraumatic. Normocephalic. EYES: Pupils equal and round. No scleral icterus. No injection or drainage. ENT: No nasal bleeding or discharge. Mucous membranes pink and moist. NECK: Trachea midline. No JVD. No midline tenderness CARDIOVASCULAR: Regular rate and rhythm. No murmur appreciated. RESPIRATORY: No accessory muscle use. Clear to auscultation. Breath sounds equal bilaterally. GASTROINTESTINAL: Abdomen soft, non-tender, nondistended. Hepatic and splenic margins not palpable. MUSCULOSKELETAL: No obvious deformities. No clubbing. No cyanosis. No edema. NEUROLOGICAL: Awake and alert. No obvious cranial nerve deficits. Motor grossly within normal limits. Normal speech. PSYCHIATRIC: Appropriate mood and affect; insight and judgment reduced Course Initial Documented Vital Signs Temperature 98.8 F 12/12/18 11:00 Pulse Rate 89 12/12/18 11:00 Respiratory Rate 16 12/12/18 11:00 Blood Pressure 135/56 L 12/12/18 11:00 Last Documented Vital Signs Temperature 98.8 F 12/12/18 11:00 Pulse Rate 89 12/12/18 11:00 Respiratory Rate 16 12/12/18 11:00 Blood Pressure 135/56 L 12/12/18 11:00 Medical Decision Making MDM Narrative Medical decision making narrative: 73-year-old female who is bipolar and having hallucinations and paranoid thoughts. She will need psychiatric evaluation. I have ordered that. Also medical clearance workup to include blood and urine studies. Case presented to me pending disposition and plan. Dr. Leong is a doctor who evaluated her initially. Patient was medically clear for psychiatric eval. Mental health screening was discussed with the patient. Medical Screen Exam Complete: Yes Emergency Medical Condition: Yes Differential Diagnosis Differential Diagnosis: Depression versus suicidal ideation versus anxiety versus adjustment disorder versus mood disorder versus bipolar disorder versus schizophrenia versus paranoid disorder versus psychosis versus substance abuse versus alcohol abuse versus alcohol induced psychosis versus homicidality addition versus cutting versus personality disorder Medical Records Medical records reviewed: Yes I reviewed the patient's medical records. Lab Data Lab results reviewed: Yes I reviewed the patient's lab results. Result diagrams: 12/12/18 12:05 12/12/18 12:05 Lab Results 12/12/18 12/12/18 12/12/18 Range/Units 12:05 12:05 12:05 WBC 7.9 (4.0-11.0) th/mm3 RBC 4.44 (4.00-5.30) mil/mm3 Hgb 14.0 (11.6-15.3) gm/dL Hct 42.6 (35.0-46.0) % MCV 96.0 (80.0-100.0) fL MCH 31.6 (27.0-34.0) pg MCHC 33.0 (32.0-36.0) % RDW 13.2 (11.6-17.2) % Plt Count 360 (150-450) th/mm3 MPV 7.0 (7.0-11.0) fL Neut % (Auto) 65.3 (16.0-70.0) % Lymph % (Auto) 20.6 (9.0-44.0) % [place] % (Auto) 8.6 H (0.0-8.0) % Eos % (Auto) 4.7 H (0.0-4.0) % Baso % (Auto) 0.8 (0.0-2.0) % Neut # (Auto) 5.1 (1.8-7.7) th/mm3 Lymph # (Auto) 1.6 (1.0-4.8) th/mm3 [place] # (Auto) 0.7 (0.0-0.9) th/mm3 Eos # (Auto) 0.4 (0.0-0.4) th/mm3 Baso # (Auto) 0.1 (0.0-0.2) th/mm3 WBC Differential . Differential Comment Auto diff final Sodium 143 (136-145) meq/L Potassium 3.7 (3.5-5.1) meq/L Chloride 110 H (98-107) meq/L Carbon Dioxide 24.1 (21.0-32.0) meq/L Anion Gap 9 (5-15) meq/L BUN 23 H (7-18) mg/dL Creatinine 0.92 (0.50-1.00) mg/dL Estimated GFR 60 L (>89) mL/min Random Glucose 195 H (74-106) mg/dL Calcium 8.4 L (8.5-10.1) mg/dL Total Bilirubin 0.4 (0.2-1.0) mg/dL AST 55 H (15-37) U/L ALT 74 H (10-53) U/L Alkaline Phosphatase 86 (45-117) U/L Total Protein 6.9 (6.4-8.2) g/dL Albumin 3.4 (3.4-5.0) g/dL TSH 1.480 (0.358-3.740) uIU/mL [place] 0.3 L (0.5-1.5) meq/L Serum Alcohol Less than 3 (0-5) mg/dL Discharge Plan Discharge Disposition Patient Disposition: Sign Out(ED Internal Use Only) Discharge Details Diagnosis: Bipolar I disorder, most recent episode mixed, severe with psychotic features Physicians Team ED Provider: Anthony Leong ED Midlevel Provider: Rodrigo Nicole Primary Care Provider: Drea Marshall Rxs /Orders / Referrals /Forms Prescriptions: No Action lithium carbonate 450 mg Tablet Extended Release 450 mg PO BID RF: 0 Status ED Status: Medically Cleared
[2018-12-12 12:31] LABS: Baso # (Auto) 0.1 th/mm3 (0.0-0.2); Baso % (Auto) 0.8 % (0.0-2.0); Eos # (Auto) 0.4 th/mm3 (0.0-0.4); Eos % (Auto) 4.7 % (0.0-4.0); Hematocrit 42.6 % (35.0-46.0); Lymph # (Auto) 1.6 th/mm3 (1.0-4.8); Lymph % (Auto) 20.6 % (9.0-44.0); Mean Corpuscular Hemoglobin 31.6 pg (27.0-34.0); Mono # (Auto) 0.7 th/mm3 (0.0-0.9); Mono % (Auto) 8.6 % (0.0-8.0); Neut # (Auto) 5.1 th/mm3 (1.8-7.7); Neut % (Auto) 65.3 % (16.0-70.0); Platelet Count 360 th/mm3 (150-450); Red Blood Count 4.44 mil/mm3 (4.00-5.30); Red Cell Distribution Width 13.2 % (11.6-17.2); White Blood Count 7.9 th/mm3 (4.0-11.0)
[2018-12-12 12:53] LABS: Alanine Aminotransferase 74 U/L (10-53); Albumin 3.4 g/dL (3.4-5.0); Anion Gap 9 meq/L (5-15); Aspartate Aminotransferase 55 U/L (15-37); Blood Urea Nitrogen 23 mg/dL (7-18); Calcium 8.4 mg/dL (8.5-10.1); Carbon Dioxide 24.1 meq/L (21.0-32.0); Chloride 110 meq/L (98-107); Glomerular Filtration Rate 60 mL/min (>89); Glucose,Random 195 mg/dL (74-106); Potassium 3.7 meq/L (3.5-5.1); Sodium 143 meq/L (136-145)
[2018-12-12 13:03] LABS: Alkaline Phosphatase 86 U/L (45-117); Total Protein 6.9 g/dL (6.4-8.2)
[2018-12-12] MEDS ORDERED: Aluminum/Magnesium/Simethacone Susp 30 ML UDC PO PRN (15:19)
--- NOTE | 2018-12-12 15:44 | P.HPPSY ---
Provisional Diagnosis Admission Date: December 12, 2018 10:40 [place] I.: Psychosis NOS Competence Certification of Person's Competence To Provide Express and Informed Consent I have personally examined Cristina Perez, a person being served at [facility] on, December 12, 2018 1537. Express and informed consent means consent voluntarily given in writing, by a competent person, after sufficient explanation and disclosure of the subject matter involved to enable the person to make a knowing and willful decision without any element of force, fraud, deceit, duress, or other form of constraint or coercion. This person is 18 years of age or older, is not now known to be incompetent to consent to treatment with a guardian advocate, and does not have a health care surrogate or proxy currently making medical treatment decisions. I have found this person to be one of the following: [XX] Competent to provide express and informed consent, as defined above, for voluntary admission to this facility and is competent to provide express and informed consent for treatment. He/she has the consistent capacity to make well reasoned, willful, and knowing decisions concerning his or her medical or mental health treatment. The person fully and consistently understands the purpose of the admission for examination/placement and is fully capable of personally exercising all rights assured [place] Incompetent to provide express and informed consent to voluntary admission, and this is incompetent to provide express and informed consent to treatment. The person must be transferred to involuntary status and a petition for a guardian advocate filed with the Circuit Court. [] Refusing to provide express and informed consent to voluntary admission but is competent to provide express and informed consent for treatment. The person must be discharged or transferred to involuntary status. Form shall be completed within 24 hours of a person's arrival at the receiving facility and filed in the clinical record of each person: 1. Admitted on a voluntary basis 2. Permitted to provide express and informed consent to his/her own treatment 3. Allowed to transfer from involuntary to voluntary status 4. Prior to permitting a person to consent to his or her own treatment after having been previously found incompetent to consent to treatment. History of Present Illness Capacity: Has capacity History of Present Illness: This is a 73-year-old , female who presents to this facility voluntarily. She was brought in by her social sciences department chair after friend had called to her primary care physician due to concern over her paranoid thoughts and hearing voices. The patient is known to this department and was recently admitted from October 24 - October 31, 2018. She was ordered to be [facility] and that the psychiatrist had reported that she was "at substantial risk of worsening mood and psychosis due to her lack of adherence with treatment". Reviewed electronic medical record, labs, discussed case with staff. Patient's lithium level is noted to be subtherapeutic at 0.3. Patient was evaluated in B 23. She is found sitting up in bed eating her lunch. Her speech is clear, logical, organized, of normal soraya and volume. She is alert and oriented x4. She denies suicidal or homicidal ideation. She does endorse auditory hallucinations but states that she cannot make out what they are saying. She endorses visual hallucinations stating, "I see things but they do not scare me, they are holograms". She rates her mood is good and her affect is congruent although at times she seems a touch irritable. "All I know is my doctor sent me for a mental health evaluation." Patient reports that she is and lives by herself. She claims to be compliant with her medications although her labs would not bear this out. She denies any previous suicide attempts. I see from a previous H&P that the patient has a nonhealing out of state that she said she had a good relationship with however to this provider she denied having any family. Review of Systems All other systems reviewed negative except as stated in HPI PMFSH - History History Provided By: Patient - Medical History Medical History: Medical History (Last Reviewed 12/12/18 @ 15:38 by ELADIO Mayfield) Psychiatric disorder - Surgical History Surgical History: Surgical History (Last Reviewed 12/12/18 @ 15:38 by ELADIO Mayfield) History of total right knee replacement - Tobacco History Second Hand Smoke Exposure: No Tobacco Use In Past 30 Days: No Smoking Status: Never smoker Tobacco Type: Cigarettes - Alcohol History How Often Do You Have a Drink Containing Alcohol: Never - Substance Use History Substance History: No History of Abuse - Travel History Recent Travel in the [place] Within the Last 8 Weeks: No Recent Travel Out of the Country Within the Last 8 Weeks: No - Immunization History Tetanus Immunization: Unsure Quality Measures - Psychiatric History Psychological trauma history: Denies Violence risk to others in the last 6 months: Denies Violence risk to self in the last 6 months: Denies - Substance Abuse History Drug or alcohol use in the past 12 months: Denies - Patient Strengths Patient's strengths (minimum of 2): Patient is alert and oriented and has established outpatient services set up. Medications and Allergies Active Medications: Active Medications Al Hydrox/Mg Hydrox/Simethicone (Mag-Al Plus Susp Liq) 30 ml PO Q6H PRN PRN Reason: DYSPEPSIA Al Hydroxide/Mg Hydroxide (Milk Of Magnesia Liq) 30 ml PO Q12H PRN PRN Reason: Mild Constipation Diphenhydramine HCl (Benadryl) 50 mg PO HS PRN PRN Reason: INSOMNIA Hydroxyzine HCl (Atarax) 50 mg PO Q6H PRN PRN Reason: ANXIETY Ibuprofen (Motrin) 600 mg PO Q8HR PRN PRN Reason: PAIN SCALE 1 TO 10 [place] Carbonate (Eskalith Sr) [facility] Allergies Allergy/AdvReac Type Severity Reaction Status Date / Time No Known Allergies Allergy Unverified 02/09/18 20:47 Home Medications Medication Instructions Recorded Confirmed Type lithium carbonate 450 mg PO BID 12/12/18 12/12/18 History Results - Labs CBC & Chem 7: 12/12/18 12:05 12/12/18 12:05 Labs: Laboratory Results - last 24 hr 12/12/18 12/12/18 12/12/18 12:05 12:05 12:05 WBC 7.9 RBC 4.44 Hgb 14.0 Hct 42.6 MCV 96.0 MCH 31.6 MCHC 33.0 RDW 13.2 Plt Count 360 MPV 7.0 Neut % (Auto) 65.3 Lymph % (Auto) 20.6 [place] % (Auto) 8.6 H Eos % (Auto) 4.7 H Baso % (Auto) 0.8 Neut # (Auto) 5.1 Lymph # (Auto) 1.6 [place] # (Auto) 0.7 Eos # (Auto) 0.4 Baso # (Auto) 0.1 WBC Differential . Differential Comment Auto diff final Sodium 143 Potassium 3.7 Chloride 110 H Carbon Dioxide 24.1 Anion Gap 9 BUN 23 H Creatinine 0.92 Estimated GFR 60 L Random Glucose 195 H Calcium 8.4 L Total Bilirubin 0.4 AST 55 H ALT 74 H Alkaline Phosphatase 86 Total Protein 6.9 Albumin 3.4 TSH 1.480 [place] 0.3 L Serum Alcohol Less than 3 Exam Vital signs: Vital Signs 12/12/18 11:00 Temperature 98.8 F Pulse Rate 89 Respiratory Rate 16 Blood Pressure 135/56 L Intake & Output 12/11/18 12/12/18 12/12/18 18:59 06:59 18:59 Weight 150 lb - Constitutional no acute distress, obese - Routine Neurological Exam Present: alert, oriented X3 - Routine Psychiatric Exam Present: auditory hallucinations, visual hallucinations Mental Status Examination Appearance: Appropriate Consciousness: Alert Orientation: x4 Motor Activity: Other (Sitting on stretcher) Speech: Unremarkable Language: Adequate Fund of Knowledge: Adequate Attention and Concentration: Adequate Memory: Unremarkable Mood: Good Affect: Euthymic Thought Process & Associations: Intact, Logical Thought Content: Hallucinations Hallucination Type: Auditory, Visual Delusion Type: None Suicidal Ideation: No Suicidal Plan: No Suicidal Intention: No Homicidal Ideation: No Homicidal Plan: No Homicidal Intention: No Insight: Poor Judgment: Impulsive Assessment and Plan - Assessment (1) Unspecified psychosis Code(s): F29 - Unspecified psychosis not due to a substance or known physiological condition Status: Acute - Plan Plan: Estimated LOS: [7] days given patient's previous psychiatric history and her subtherapeutic lithium levels combined with her reported auditory and visual hallucinations it is likely she is destabilizing. Patient is amenable to being admitted to have her medications adjusted. She has signed the voluntary paperwork for admission as well as consent to continue her lithium and for as needed hydroxyzine and diphenhydramine. She will be admitted to a locked inpatient psychiatric unit for further evaluation and treatment as deemed necessary. Justification for Continued Inpatient Stay: Moving this patient to a less restrictive environment would likely result in decompensation.
[2018-12-13 09:48] LABS: Hemoglobin A1c 5.7 % (4.3-6.0)
[2018-12-13 10:03] LABS: Calcium 8.9 mg/dL (8.5-10.1); Carbon Dioxide 25.7 meq/L (21.0-32.0); Potassium 3.7 meq/L (3.5-5.1)
[2018-12-13 10:15] LABS: Chol/HDL Ratio 2.47 Ratio; HDL Cholesterol 75.2 mg/dL (40.0-60.0)
--- NOTE | 2018-12-13 10:35 | P.PNPSY ---
Subjective Chief Complaint: Angry with doctors for admitting her to the hospital Remarks: Subjective: Patient mildly agitated and complaining of doctors putting her in the hospital and wanting to rehana them and her urologist who treated her with Botox without success. Patient missed a dose of her lithium last p.m. Record reviewed with the staff. Agree with the current treatment and will check a lithium level on Sunday. Review of Systems Difficult to obtain. Patient having a tirade about being admitted and unresponsive to ROS questions beyond her complaints of urinary frequency. Mental Status Examination Appearance: Appropriate Consciousness: Alert Orientation: x4 Motor Activity: Other (Sitting on stretcher) Speech: Unremarkable Language: Adequate Fund of Knowledge: Adequate Attention and Concentration: Adequate Memory: Unremarkable Mood: Good Affect: Euthymic Thought Process & Associations: Intact, Logical Thought Content: Hallucinations Hallucination Type: Auditory, Visual Delusion Type: None Suicidal Ideation: No Suicidal Plan: No Suicidal Intention: No Homicidal Ideation: No Homicidal Plan: No Homicidal Intention: No Insight: Poor Judgment: Impulsive Assessment and Plan - Plan Plan: Estimated LOS: [7] days given patient's previous psychiatric history and her subtherapeutic lithium levels combined with her reported auditory and visual hallucinations it is likely she is destabilizing. Patient is amenable to being admitted to have her medications adjusted. She has signed the voluntary paperwork for admission as well as consent to continue her lithium and for as needed hydroxyzine and diphenhydramine. She will be admitted to a locked inpatient psychiatric unit for further evaluation and treatment as deemed necessary. Justification for Continued Inpatient Stay: Patient could not be treated at a lower level of care for fear of further decompensation.
--- NOTE | 2018-12-13 11:24 | ECG ---
Date Performed: 12/13/2018 Time Performed: 08:26:41 PTAGE: 73 years EKG: Sinus rhythm BORDERLINE LEFT AXIS DEVIATION LEFT VENTRICULAR HYPERTROPHY AND ST-T CHANGE ABNORMAL ECG PREVIOUS TRACING : 02/11/2018 09.48 No significant change from previous tracing noted. DOCTOR: Stuart Dennis Interpretating Date/Time 12/13/2018 11:23:42
--- NOTE | 2018-12-14 13:19 | P.PNPSY ---
Subjective Chief Complaint: Follow-up treatment of mood disorder Remarks: Patient seen for follow-up, chart reviewed, patient discussed with nursing staff ; we reviewed the patient's mood, thoughts, and behaviors from overnight and this morning. Nurse reports the patient was very restless overnight and slept only 4 hours altogether. She is described as hyperverbal and verbally abusive to nursing staff. Patient has been compliant with medications. Patient was seen at bedside where she was lying awake watching TV. She admits to continued auditory hallucinations but would not expound upon specifics. She denies suicidal or homicidal ideations. Her attitude was guarded and hostile with provider. She admits to difficulty with sleep and we discussed past trials of treatment to help her sleep and she reports good efficacy and tolerability from temazepam. Mental Status Examination Appearance: Appropriate Consciousness: Alert Orientation: x4 Motor Activity: Other (Sitting on stretcher) Speech: Unremarkable Language: Adequate Fund of Knowledge: Adequate Attention and Concentration: Adequate Memory: Unremarkable Mood: Irritable Affect: Irritable Thought Process & Associations: Intact, Logical Thought Content: Hallucinations Hallucination Type: Auditory Delusion Type: None Suicidal Ideation: No Suicidal Plan: No Suicidal Intention: No Homicidal Ideation: No Homicidal Plan: No Homicidal Intention: No Insight: Poor Judgment: Impulsive Assessment and Plan - Assessment (1) Bipolar I disorder, most recent episode mixed, severe with psychotic features Code(s): F31.64 - Bipolar disorder, current episode mixed, severe, with psychotic features Status: Acute - Plan Plan: December 13, 2018: Estimated LOS: [7] days given patient's previous psychiatric history and her subtherapeutic lithium levels combined with her reported auditory and visual hallucinations it is likely she is destabilizing. Patient is amenable to being admitted to have her medications adjusted. She has signed the voluntary paperwork for admission as well as consent to continue her lithium and for as needed hydroxyzine and diphenhydramine. She will be admitted to a locked inpatient psychiatric unit for further evaluation and treatment as deemed necessary. December 14, 2018: Unsatisfactory response to treatment, the patient's mood and behavior are consistent with a mixed manic episode. Her lack of sleep likely contributes to her slow recovery therefore she was offered a sleep aid and chose temazepam due to past efficacy and tolerability. Continue inpatient psychiatric treatment and stabilization. Continue lithium 450 mg twice a day for bipolar disorder. Start temazepam 50 mg at bedtime as needed for sleep. Justification for Continued Inpatient Stay: Patient remains an elevated risk for self-harm by self neglect and will require further inpatient stabilization and preparation of a safe discharge plan. Moving patient to a less restrictive environment at this time may result in decompensation.
[2018-12-14] MEDS ORDERED: Temazepam 15 MG Capsule PO PRN (21:00)
[2018-12-15] MEDS: Ibuprofen 600 MG Tablet PO PRN (06:34)
--- NOTE | 2018-12-15 13:09 | P.PNPSY ---
Subjective Chief Complaint: Follow-up treatment of mood disorder Remarks: Reviewed electronic medical record and discussed with nursing staff. Patient in her room without any clothes on . When asked to cover herself she states "why." She is very irritable and verbally abusive of staff. When you ask her a questions she responds with a question. Eating well. Sleeping has been a struggle and medications were adjusted yesterday. She is medication compliant. Review of Systems All other systems reviewed negative except as stated in HPI Mental Status Examination Appearance: Appropriate Consciousness: Alert Orientation: x4 Motor Activity: Other (Sitting on stretcher) Speech: Unremarkable Language: Adequate Fund of Knowledge: Adequate Attention and Concentration: Adequate Memory: Unremarkable Mood: Irritable Affect: Irritable Thought Process & Associations: Intact, Logical Thought Content: Hallucinations Hallucination Type: Auditory Delusion Type: None Suicidal Ideation: No Suicidal Plan: No Suicidal Intention: No Homicidal Ideation: No Homicidal Plan: No Homicidal Intention: No Insight: Poor Judgment: Impulsive Assessment and Plan - Assessment (1) Bipolar I disorder, most recent episode mixed, severe with psychotic features Code(s): F31.64 - Bipolar disorder, current episode mixed, severe, with psychotic features Status: Acute - Plan Plan: December 13, 2018: Estimated LOS: [7] days given patient's previous psychiatric history and her subtherapeutic lithium levels combined with her reported auditory and visual hallucinations it is likely she is destabilizing. Patient is amenable to being admitted to have her medications adjusted. She has signed the voluntary paperwork for admission as well as consent to continue her lithium and for as needed hydroxyzine and diphenhydramine. She will be admitted to a locked inpatient psychiatric unit for further evaluation and treatment as deemed necessary. December 14, 2018: Unsatisfactory response to treatment, the patient's mood and behavior are consistent with a mixed manic episode. Her lack of sleep likely contributes to her slow recovery therefore she was offered a sleep aid and chose temazepam due to past efficacy and tolerability. Continue inpatient psychiatric treatment and stabilization. Continue lithium 450 mg twice a day for bipolar disorder. Start temazepam 50 mg at bedtime as needed for sleep. December 15, 2018 . Irritable, verbally abusive of staff. Will not keep her clothes on and when asked to cover herself she is argumentative. Justification for Continued Inpatient Stay: Moving patient to a less restrictive environment may result in her decompensation.
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
[2018-12-16] MEDS: OLANZapine 15 MG ODT Tablet PO SCH (14:25)
--- NOTE | 2018-12-17 09:11 | P.PNPSY ---
Subjective Chief Complaint: Follow-up treatment of mood disorder Remarks: Subjective: Patient was seen in her room and discussed with the nursing staff who report the patient was restless during the night and allegedly fell out of bed a couple of times finally was allowed to have her mattress on the floor after seem to prefer sleeping on the floor. Once on her floor mattress she slept through the night. Today she is showing remarkable change in her mood and affect. There is none of the irritability and negative attitude seeing me yesterday. The medication changes seemed have made some difference at least for this morning. It would seem that the staff felt the patient was not particularly better during the night. Review of Systems ROS: Patient reports no new complaints Mental Status Examination Appearance: Appropriate Consciousness: Alert Orientation: x4 Motor Activity: Normal gait Speech: Unremarkable Language: Adequate Fund of Knowledge: Adequate Attention and Concentration: Adequate Memory: Unremarkable Mood: Appropriate, Good Affect: Euthymic Thought Process & Associations: Intact, Logical Thought Content: Appropriate Hallucination Type: None Delusion Type: None Suicidal Ideation: No Suicidal Plan: No Suicidal Intention: No Homicidal Ideation: No Homicidal Plan: No Homicidal Intention: No Insight: Fair Judgment: Impulsive Assessment and Plan - Assessment (1) Bipolar I disorder, most recent episode mixed, severe with psychotic features Code(s): F31.64 - Bipolar disorder, current episode mixed, severe, with psychotic features Status: Acute - Plan Plan: December 13, 2018: Estimated LOS: [7] days given patient's previous psychiatric history and her subtherapeutic lithium levels combined with her reported auditory and visual hallucinations it is likely she is destabilizing. Patient is amenable to being admitted to have her medications adjusted. She has signed the voluntary paperwork for admission as well as consent to continue her lithium and for as needed hydroxyzine and diphenhydramine. She will be admitted to a locked inpatient psychiatric unit for further evaluation and treatment as deemed necessary. December 14, 2018: Unsatisfactory response to treatment, the patient's mood and behavior are consistent with a mixed manic episode. Her lack of sleep likely contributes to her slow recovery therefore she was offered a sleep aid and chose temazepam due to past efficacy and tolerability. Continue inpatient psychiatric treatment and stabilization. Continue lithium 450 mg twice a day for bipolar disorder. Start temazepam 50 mg at bedtime as needed for sleep. December 15, 2018 . Irritable, verbally abusive of staff. Will not keep her clothes on and when asked to cover herself she is argumentative. December 16 2018. No real change in patient's behavior will add Zyprexa Zydis 15 mg daily December 17, 2018: Gone is the irritability and negativism. The patient is calm and always as before requesting discharge. It is too soon to believe that this remarkable improvement is related to yesterday's medication changes but hopefully patient will maintain her current state of mood and affect and can be discharged tomorrow. The nursing reports did not support the rather remarkable changes witnessed when I saw her at 830 this morning. It is important to note lithium level was 0.9 which suggests that the current dosage of lithium is correct so long as the patient is compliant. Justification for Continued Inpatient Stay: It is too soon to accept that the patient is no longer manic after only one day on the medication changes.
[2018-12-17] MEDS: OLANZapine 15 MG ODT Tablet PO SCH (09:52)
[2018-12-18] MEDS: Ibuprofen 600 MG Tablet PO PRN (01:07)
--- NOTE | 2018-12-18 08:15 | P.DSPSY ---
Psychiatry Discharge Summary Inpatient Psychiatric care?: Yes Advance Directives: No Mental Health Advance Directive: No Health Care Proxy: No - Admission Admission Date: December 12, 2018 15:22 Brief History: This is a 73-year-old , female who presents to this facility voluntarily. She was brought in by her geriatric social worker after friend had called to her primary care physician due to concern over her paranoid thoughts and hearing voices. The patient is known to this department and was recently admitted from October 24 - October 31, 2018. She was ordered to be discharged by the [facility] and that the psychiatrist had reported that she was "at substantial risk of worsening mood and psychosis due to her lack of adherence with treatment". Reviewed electronic medical record, labs, discussed case with staff. Patient's lithium level is noted to be subtherapeutic at 0.3. Patient was evaluated in B 23. She is found sitting up in bed eating her lunch. Her speech is clear, logical, organized, of normal soraya and volume. She is alert and oriented x4. She denies suicidal or homicidal ideation. She does endorse auditory hallucinations but states that she cannot make out what they are saying. She endorses visual hallucinations stating, "I see things but they do not scare me, they are holograms". She rates her mood is good and her affect is congruent although at times she seems a touch irritable. "All I know is my doctor sent me for a mental health evaluation." Patient reports that she is and lives by herself. She claims to be compliant with her medications although her labs would not bear this out. She denies any previous suicide attempts. I see from a previous H&P that the patient has a nonhealing out of state that she said she had a good relationship with however to this provider she denied having any family. Tobacco Use In Past 30 Days: No How Often Do You Have a Drink Containing Alcohol: Monthly or less Hospital Course: Course in hospital: Patient admitted acutely manic and with a lithium level of 0.3. Patient was supposed to be taking 450 twice daily but apparently was not. In about the length of time it took patient lithium level to read 0.9 she made on almost overnight recovery. Patient was also started on Abilify 15 mg a day the day before the remarkable changes occurred. Patient has been sleeping on the floor and finally the staff put the mattress on the floor for her. She has been sleeping for the past 4 days with Restoril 15 mg. The Restoril was not continued post discharge. The lithium carbonate 450 twice daily seems to be adequate and the patient had no difficulties with Abilify 15 which also will be continued. Because of the patient's very likely noncompliance with medication home health services will be ordered. - Discharge Discharge Date: 12/18/18 Discharge Disposition: Home - Discharge Instructions Discharge Diet: Regular Diet Activities You Can Perform: Weight Bearing As Tolerat - Discharge Time > 30 minutes Mental Status Examination Appearance: Appropriate Consciousness: Alert Orientation: x4 Motor Activity: Normal gait Speech: Unremarkable Language: Adequate Fund of Knowledge: Adequate Attention and Concentration: Adequate Memory: Unremarkable Mood: Appropriate, Good Affect: Euthymic Thought Process & Associations: Intact, Logical Thought Content: Appropriate Hallucination Type: None Delusion Type: None Suicidal Ideation: No Suicidal Plan: No Suicidal Intention: No Homicidal Ideation: No Homicidal Plan: No Homicidal Intention: No Insight: Fair Judgment: Impulsive Discharge/Advance Care Plan - Results Vital Signs: Last Vital Signs Temp 97.6 F 12/17/18 18:00 Pulse 73 12/17/18 18:00 Resp 17 12/17/18 18:00 BP 134/65 12/17/18 18:00 Pulse Ox 96 12/17/18 17:19 Lab Results: Laboratory Results Hemoglobin A1c 5.7 % (4.3-6.0) 12/13/18 09:01 Triglycerides 111 mg/dL (42-150) 12/13/18 09:01 Cholesterol 186 mg/dL (120-200) 12/13/18 09:01 LDL Cholesterol, Calc 89 mg/dL (0-99) 12/13/18 09:01 HDL Cholesterol 75.2 mg/dL (40.0-60.0) H 12/13/18 09:01 TSH 1.480 uIU/mL (0.358-3.740) 12/12/18 12:05 [place] 0.9 meq/L (0.5-1.5) 12/16/18 20:54 Summary of Procedures: None Pending Results: None - Medications Number of antipsychotic medications at discharge: 1 - Discharge Care Plan Goals to Promote Your Health: * To prevent worsening of your condition and complications * To maintain your health at the optimal level Directions to Meet Your Goals: Take your medications as prescribed Follow your dietary instruction Follow activity as directed Keep your appointments as scheduled Take your immunizations and boosters as scheduled If your symptoms worsen call your PCP, if no PCP go to Urgent Care Center or Emergency Room For 14/05 questions related to your inpatient stay or results of tests pending at discharge, please contact Dr. Teto Kim MD at Smoking is Dangerous to Your Health. Avoid second hand smoking
[2018-12-18] MEDS: OLANZapine 15 MG ODT Tablet PO SCH (08:29)
--- NOTE | 2018-12-18 09:42 | P.DCO ---
- Physical Therapy Order: Evaluate and treat - Occupational Therapy Order: Evaluate and treat, Improve ADL, Fine motor coordination - Home Health Nursing Order: Medical education, Signs/symptoms of disease process, Medication education-adverse effect, Nursing assessment with vital signs - Home Health Aide Order: To assist in: Bathing and personal care - Fabric Worker Supervisor Order: To evaluate: Support services Order: To provide: Community services - Case Management Consult Case Management Consult-Home Health: Yes - Certification I have seen patient Cristina Perez on 12/18/18. My clinical findings support the need for the requested home health care services because: Medication compliance is questionable, Limited ability to care for self, Impaired cognition/judgement I certify that my clinical findings support that this patient is homebound because: Impaired cognitive ability/safety
== END 2018-12-18 14:35 | disposition home health service (06) | DRG 885 ==
LOC: NEPB 10:40 → NEDH 15:22 → H4EA 16:49
PROVIDERS: ADMIT Psychiatry & Neurology Child & Adolescent Psychiatry; ATTEND Psychiatry & Neurology Child & Adolescent Psychiatry
CPT/HCPCS: 80048; 80053; 80061; 80178; 80307; 83036; 84443; 85025; 90791; 93005; 99285; Q0163